=== PATIENT | female | born 1955 | race Caucasian/White ===

== ENCOUNTER 2023-10-06 01:05 | Day surgery (SDC) | payer MEDICARE, SELFPAY ==
[2023-09-21 14:52] VITALS: BMI 25.0
--- NOTE | 2023-09-22 09:44 | SUR.PREOP ---
Patient reported that the bisacodyl laxative tabs cause her abdominal pain, nausea and vomiting. She asked if she could skip or substitute them for another laxative. Per Dr. Duque, patient can take 10oz magnesium citrate in place of laxative tabs.
--- NOTE | 2023-10-04 09:16 | SUR.PREOP ---
Patient called regarding upcoming procedure. Reviewed preop instructions, appointment times, and procedure prep.
--- NOTE | 2023-10-05 18:14 | PM.HPGS ---
History of Present Illness History of Present Illness Consent: Risks, benefits, and alternatives have been discussed and questions answered. Patient agrees to proceed with procedure. Chief complaint: GERD,Dysphagia,Fam hx colon ca Narrative: Neelam Pettit is a 68 year old female With worsening acid reflux will she were regurgitate and have a bitter and sour taste in her mouth and usually worse by the evening time.? She does have nocturnal wakening with this.? She takes for fast acting Tums around 3 times per week that does help.? She describes that anything acidic such as bananas, tomatoes, onions and carbonation give her worsening symptoms.? She does state if she drinks carbonation it burn as it goes down her esophagus.? She does have a history of cervical spine surgery From anterior approach and does report a pressure sensation with swallowing in that same area. she has a family history of colon cancer. Her father had colon cancer. Her last colonoscopy was about 6 years ago. Review of Systems Review of Systems: All systems reviewed & are unremarkable except as noted in HPI and below PMFSH Past Medical History Medical History Constipation Diverticulosis Dysphagia Family hx of colon cancer Gastroesophageal reflux disease History of gastroscopy History of ischemic colitis Hx of colonic polyp Tobacco use Surgical History Surgical History History of partial hysterectomy History of tonsillectomy Hx of cholecystectomy Family History Family History Father Colon cancer Mother Hypertension Heart disease Social History Social History Smoking packs per day: 0.5 Smoking cigarettes per day: 10.0 Years smoked: 30 Smoking pack-years: 15.00 Smoking status: Current every day smoker Tobacco type: cigarettes and e-cigarettes/vaping Alcohol intake: current Substance use: unknown Living arrangements: with family Spiritual care concerns: No Meds Home Medications and Allergies Home Medications Medication Instructions Recorded Confirmed Type acetaminophen 300 mg-codeine 30 12.5 ml PO Q8H 08/17/23 10/06/23 History mg/12.5 mL (12.5 mL) oral solution atorvastatin 20 mg tablet 20 mg PO DAILY 08/17/23 10/06/23 History cyclobenzaprine 10 mg tablet 10 mg PO TID 08/17/23 10/06/23 History dicyclomine 20 mg tablet 20 mg PO TID PRN cramping 08/17/23 10/06/23 History glimepiride 1 mg tablet 1 mg PO QAM 08/17/23 10/06/23 History metformin 500 mg tablet 500 mg PO BID 08/17/23 10/06/23 History omeprazole 40 mg capsule,delayed 40 mg PO DAILY #30 caps 08/17/23 10/06/23 Rx release oxybutynin chloride 5 mg tablet 5 mg PO TID PRN Interstitial 08/17/23 10/06/23 History Cystitis Allergies Allergy/AdvReac Type Severity Reaction Status Date / Time fentanyl Allergy Mild Unknown Verified 10/06/23 08:20 indomethacin Allergy Mild unknown Verified 10/06/23 08:20 meperidine [From Demerol] Allergy Mild Unknown Verified 10/06/23 08:20 tetracycline Allergy Mild Unknown Verified 10/06/23 08:20 tramadol [From Ultram] Allergy Mild Unknown Verified 10/06/23 08:20 hydrocodone AdvReac Mild unknown Verified 10/06/23 08:20 oxycodone [From Percocet] AdvReac Mild Unknown Verified 10/06/23 08:20 floxin Allergy Mild Unknown Uncoded 10/06/23 08:20 neospro Allergy Mild Unknown Uncoded 10/06/23 08:20 Exam Const: General: alert Orientation/consciousness: patient oriented x3 Resp: Auscultation: clear to auscultation bilaterally Cardio: Rhythm: regular rhythm GI: GI Palp: Yes Soft to palpation and No Tenderness to palpation present (GI) Neuro: General: patient oriented x3 Assessment and Plan Assessment and plan (1) Family hx of colon cancer: Code(s): Z80.0 - Family history of malignant neoplasm of digestive organs Status: Acute Assessme
[2023-10-06 08:21] VITALS: BP 118/65; PULSE 95; RESP 18; TEMP 36.1; O2SAT 100; BMI 25.0
[2023-10-06] MEDS: LACTATED RINGERS 1,000 ML 150 ML IV CONT (08:24)
[2023-10-06 08:42] LABS: Glucose Point of Care 144 mg/dl (65-105)
--- NOTE | 2023-10-06 08:47 | WPDANESEPPF ---
Anes - Initial Pre Proc Eval Procedure: Operation Date: 10/06/23 09:00 Proposed Procedures p Esophagogastroduodenoscopy & Colonoscopy - Boaz Duque MD Date/Time: 10/06/23 08:47 Surgeon: Boaz Duque MD Pre Op Diagnosis: GERD,Dysphagia,Fam hx colon ca Patient Data Age: 68 Gender: F Height: 1.55 m Weight: 60.2 kg Last Vital Signs Temp 96.9 F L 10/06/23 08:21 Pulse 95 10/06/23 08:21 Resp 18 10/06/23 08:21 BP 118/65 10/06/23 08:21 Pulse Ox 100 10/06/23 08:21 O2 Del Method Room Air 10/06/23 08:21 Allergies Allergy/AdvReac Type Severity Reaction Status Date / Time fentanyl Allergy Mild Unknown Verified 10/06/23 08:20 indomethacin Allergy Mild unknown Verified 10/06/23 08:20 meperidine [From Demerol] Allergy Mild Unknown Verified 10/06/23 08:20 tetracycline Allergy Mild Unknown Verified 10/06/23 08:20 tramadol [From Ultram] Allergy Mild Unknown Verified 10/06/23 08:20 hydrocodone AdvReac Mild unknown Verified 10/06/23 08:20 oxycodone [From Percocet] AdvReac Mild Unknown Verified 10/06/23 08:20 floxin Allergy Mild Unknown Uncoded 10/06/23 08:20 neospro Allergy Mild Unknown Uncoded 10/06/23 08:20 Home Medications Medication Instructions Recorded Confirmed Type acetaminophen 300 mg-codeine 30 12.5 ml PO Q8H 08/17/23 10/06/23 History mg/12.5 mL (12.5 mL) oral solution atorvastatin 20 mg tablet 20 mg PO DAILY 08/17/23 10/06/23 History cyclobenzaprine 10 mg tablet 10 mg PO TID 08/17/23 10/06/23 History dicyclomine 20 mg tablet 20 mg PO TID PRN cramping 08/17/23 10/06/23 History glimepiride 1 mg tablet 1 mg PO QAM 08/17/23 10/06/23 History metformin 500 mg tablet 500 mg PO BID 08/17/23 10/06/23 History omeprazole 40 mg capsule,delayed 40 mg PO DAILY #30 caps 08/17/23 10/06/23 Rx release oxybutynin chloride 5 mg tablet 5 mg PO TID PRN Interstitial 08/17/23 10/06/23 History Cystitis Laboratory Tests 10/06/23 08:38 POC Capillary Glucose 144 H mg/dl (65-105) Patient hx anesthesia problems: none Family hx anesthesia problems: none Results Review: All pre-operative results and documents have been reviewed as part of the pre-operative evaluation. PMF Past Medical History Medical History Constipation Diverticulosis Dysphagia Family hx of colon cancer Gastroesophageal reflux disease History of gastroscopy History of ischemic colitis Hx of colonic polyp Tobacco use Surgical History Surgical History (Updated 08/17/23 @ 11:48 by Jesusita Nunez MA) History of partial hysterectomy History of tonsillectomy Hx of cholecystectomy Family History Family History (Updated 08/17/23 @ 08:23 by Jesusita Nunez MA) Father Colon cancer Mother Hypertension Heart disease Social History Social History (Updated 08/17/23 @ 11:49 by Jesusita Nunez MA) Smoking packs per day: 0.5 Smoking cigarettes per day: 10.0 Years smoked: 30 Smoking pack-years: 15.00 Smoking status: Current every day smoker Tobacco type: cigarettes and e-cigarettes/vaping Alcohol intake: current Substance use: unknown Living arrangements: with family Spiritual care concerns: No Anes - Eval Final PreProcedure Day of Procedure 10/06/23 08:47 Patient weight: normal Heart: regular rate and rhythm Lungs: clear to auscultation Airway: Mallampati scale class II Neurological: alert and oriented Last oral intake: >/= 8 hours ASA classification: III Emergent: no Anesthetic plan: proceed Anesthesia type and monitoring: general GIVS and standard monitoring Results Review: All pre-operative results and documents have been reviewed as part of the pre-operative evaluation. Informed Consent: The patient's anesthetic plan and its attendant risks and benefits were discussed with the patient/family/POA. Questions were solicited and answers provided to the satisfaction of the patient/family/POA.
[2023-10-06 09:32] VITALS: BP 91/44; PULSE 77; RESP 23; O2SAT 100
[2023-10-06 09:42] VITALS: BP 98/51; PULSE 79; RESP 25; O2SAT 100
[2023-10-06 09:52] VITALS: BP 99/54; PULSE 78; RESP 19; O2SAT 100
== END 2023-10-06 10:03 | disposition home or self-care (01) ==
PROVIDERS: PCP Internal Medicine; Visit Provider Internal Medicine Gastroenterology
PROC: 0DJ08ZZ Inspection of Upper Intestinal Tract, Via Natural or Artificial Opening Endoscopic (ICD-10-PCS; CPT 43235; principal; 2023-10-06 09:00)
DX: Z12.11 Encounter for screening for malignant neoplasm of colon (principal); D12.0 Benign neoplasm of cecum; K62.1 Rectal polyp; K63.5 Polyp of colon; K57.30 Diverticulosis of large intestine without perforation or abscess without bleeding; Z80.0 Family history of malignant neoplasm of digestive organs; K21.00 Gastro-esophageal reflux disease with esophagitis, without bleeding; K29.80 Duodenitis without bleeding; Z79.84 Long term (current) use of oral hypoglycemic drugs; F17.210 Nicotine dependence, cigarettes, uncomplicated; F17.290 Nicotine dependence, other tobacco product, uncomplicated
CPT/HCPCS: 45385; 45380; 43239; 43450; 82948; 88305; J2371; J2704; J7120

== ENCOUNTER 2024-03-28 09:18 | Outpatient (CLI) | payer MEDICARE, SELFPAY ==
--- NOTE | ~2024-03-28 | CT_ITS ---
Non-contrast CT scan of the Abdomen and Pelvis Clinical indication: Hydronephrosis Technique: 2.5 mm axial scans were obtained through the abdomen and pelvis without intravenous or or al contrast. Dose reduction technique was used on this scan by utilizing automated exposure control a nd iterative reconstruction technique. The dose-length product (DLP) was 394.39 mGy-cm. Findings: Images through the lung bases reveal no abnormalities. There is no evidence of renal or ureteral calculi. The kidneys and the ureters are nondilated. The liver, spleen, pancreas, and adrenals appear normal. Cholecystectomy clips are present. Common bi le duct is probably related to prior cholecystectomy. There are atherosclerotic calcifications of the aorta. . There is no evidence of bowel obstruction. Images through the pelvis were performed. There is no evidence of ascites or lymphadenopathy. Urinary bladder unremarkable. No adnexal mass seen. No ascites. Impression: No significant abnormality seen. No hydronephrosis. The common bile duct is probably related to prior cholecystectomy. Reviewed, dictated and finalized at [facility]. Impression: No significant abnormality seen. No hydronephrosis. The common bile duct is probably related to prior cholecystectomy.
== END 2024-03-28 09:19 | disposition home or self-care (01) ==
PROVIDERS: PCP Internal Medicine; Visit Provider Urology
DX: N13.30 Unspecified hydronephrosis (principal)
CPT/HCPCS: 74176

== ENCOUNTER 2025-05-22 07:05 | Outpatient (CLI) | payer MEDICARE, SELFPAY ==
--- NOTE | ~2025-05-22 | MM_ITS ---
EXAMINATION: MM screening [facility] BI w briseyda HISTORY: Screening TECHNIQUE: Craniocaudal and mediolateral oblique 3-D tomosynthesis images were obtained and synthetic 2-D images were generated. CAD analysis was submitted and interpreted. COMPARISON: Comparison to multiple prior studies sequentially, with oldest reviewed study dated 10/01. BREAST PARENCHYMAL COMPOSITION: The breasts are almost entirely fatty. FINDINGS: There is no evidence of suspicious mass, calcification, or architectural distortion to sug gest malignancy in either breast. Scattered benign-appearing calcifications are present. IMPRESSION: 1. No mammographic evidence of malignancy. 2. Recommend routine screening mammography in one year. BI-RADS Category 2: Benign finding(s). Reviewed, dictated and finalized at location B.
--- OUTSIDE RECORDS SUMMARY | 2025-05-22 07:09 | XMS_ITS | Clinical Summary ---
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 Role Phone Unavailable Primary Care Provider Unavailabl e Social History Tobacco Use Types Packs/Day Years Used Date Smoking Tobacco: Never Assessed Comments Unknown Sex and Gender Information Value Date Recorded Sex Assigned at Not on file Legal Sex Female 6:42 PM CDT Gender Identity Not on file Sexual Orientation Not on file Plan of Treatment Health Maintenance Due Date Last Done Comments Colorectal Cancer Screening Colonoscopy (10 Years) 1954 Hepatitis C 1972 DTaP, Tdap and Td Vaccines ( 1 - Tdap) 1973 Mammogram Screening 1994 Pneumococcal Vaccine: 50+ Ye ars (1 of 1 - PCV) 2004 Zoster Vaccines (1 of 2) 2004 Dexa Scan (General) 2019 COVID-19 Vaccine ( - 2023-2 5 season) 2024 RSV Immunization or 60+ Years (1 - 1-dose 75+ series) 2029 Meningococcal B Vaccine Aged Out No l onger eligible based on patient's age to complete this topic Meningococcal Vaccine Aged Out No kory kailey eligible based on patient's age to complete this topic RSV Immunizations Under 20 Months Aged Out No longer eligible based on patient's age to complete this topic
--- OUTSIDE RECORDS SUMMARY | 2025-05-22 07:09 | XMS_ITS | Data Portability ---
Author Organization [facility] Ferdinand Andrade Address [address] [place] [address] Care Team Providers Care Changer Fixer Name Role Phone NATASHA HUTCHINS Primary Care Provider [phone] [facility] Pododermatologist Assessment Encounter Date Assessment Date Assessment LastModified by Organization Details LastModified Time 02/16/2024 02/16/2024 Hypertension actually she has done very well controlling this conservatively. Dyslipidemia atorvastatin diabetes we will continue with the metformin and the glimepiride we will check A1c GERD omeprazole she recently had upper endoscopy in the past 6 months she did have some reflux esophagitis also had a colonoscopy I believe in October 2023 we will get those results. Low vitamin D level supplementation [id number] chronic back pain she uses Tylenol with codeine and cyclobenzaprine that she gets from pain management. Smoking she has had mole conversations about smoking cessation is not interested at this time she understands the risks we will obtain her old records see me back in 4 months CBC CMP lipid A1c Not available 02/16/2024 11:09:33 06/16/2024 06/16/2024 Tighten up on di et tighten up on walking she is going to be caring for here in the next week or so as he is going to have an a joint replacement. For her A1c glimepiride 2 mg 1/2 tablet daily for 1-2 weeks if her sugars are not less than 140 in the morning she will go to a 2 mg tablet she will let me know in a couple weeks how she is doing. She still has occasional heartburn omeprazole in the morning Pepcid at night [email or web address] Not available 06/17/2024 12:31:33 10/17/2024 10/17/2024 obtain blood wor k get her set up with a diabetic foot exam a mammogram obtain her diabetic eye exam report. Medications discussed that are in the assessment and plan still continues to see pain management. She will follow up with me in 4 months continue current therapy flu shot today see only immunizations she says she is going to take today [email or web address] Not available 10/17/2024 13:41:05 02/20/2025 02/20/2025 We will continue current therapy goals for blood pressure A1c and LDL discussed we will follow up with me in 4 months' time continue current therapy [email or web address] Not available 02/25/2025 16:34:27 Plan of Treatment Reminders Order Date Submit Date Provider Last Modified By Organization Details Last Modified Time Details Appointments ANY 15 2024 11:00A M Natasha Hutchins MD Not available Not available Not available Lab HbA1c (hemoglob in A1c), blood 2024 025 [facility], [address], [place], [address], 02/21/2025 09:04:56 lipid panel, serum 2024 025 [facility], [address], [place], [address], 02/21/2025 09:04:53 CMP, serum or plasma 2024 025 [facility], [address], [place], [address], 02/21/2025 09:04:54 CBC w/ auto diff 2024 025 [facility], [address], [place], [address], 02/21/2025 09:04:57 HbA1c (hemoglob in A1c), blood 2023 024 [facility], [address], [place], [address], 11/30/2024 13:12:19 microalbu min/creat inine, mass ratio, urine 2023 024 [facility], [address], [place], [address], 11/30/2024 13:12:15 lipid panel, serum 2023 024 [facility], [address], [place], [address], 11/30/2024 13:12:16 CMP, serum or plasma 2023 024 [facility], [address], [place], [address], 11/30/2024 13:12:17 CBC w/ auto diff 2023 024 [facility], [address], [place], [address], 11/30/2024 13:12:21 vitamin D, 25-hydrox y, total, serum 2023 024 [facility], [address], [place], [address], 11/30/2024 13:12:22 HbA1c (hemoglob in A1c), blood 2023 024 [email or web address] In-Office Order, Internal Use Only DO Not Attach Compendium DO Not Attach Compendium, Do Not Delete/[place], [id number] 06/16/2024 12:31:56 HbA1c (hemoglob in A1c), blood 2023 024 [facility], [address], [place], [address], 02/19/2024 11:14:23 CBC w/ auto diff 2023 024 [facility], [address], [place], [address], 02/19/2024 11:14:24 CMP, serum or plasma 2023 024 [facility], [address], [place], [address], 02/19/2024 11:14:23 lipid panel, serum 2023 024 [facility], [address], [place], [address], 02/19/2024 11:14:22 vitamin D, 25-hydrox y, total, serum 2023 024 [facility], [address], [place], [address], 02/19/2024 11:14:24 Referral None recorded. Procedures None recorded. Surgeries None recorded. Imaging MAMMO, screening , digital, bilateral 2023 024 [facility] (Imaging), [address], [place], [address], 05/01/2025 15:29:33 Medication Orders glimepiri de 2 mg tablet [address] #[id number], [address], [place], [address], 06/16/2024 12:31:56 Pepcid 20 mg tablet 2023 024 [email or web address] [id number] [id number], [address], [place], [address], 06/16/2024 12:31:56 omeprazol e 20 mg capsule,d elayed release [address]/[facility]acy #[id number], [address], [place], [address], 06/16/2024 12:31:56 Patient TargetsNo targets recorded. Patient Instructions Encounter Date Encounter Id Patient Instructions Last Modified By Organization Details Last Modified Time 06/16/2024 [id number] A healthy lifestyle: care instructions [email or web address] Not available 06/17/2024 12:32:05 Quitting Tobacco : Care Instructions Not available 06/17/2024 12:32:05 02/20/2025 [id number] A healthy lifestyle: care instructions [email or web address] Not available 02/20/2025 12:58:28 Reason for Referral None Reported. Results Created Date Observation Date Name Description Value Unit Range Abnormal Flag Note LastModifiedBy Organization Detail LastModifiedTime 02/18/20 24 02/19/2024 LIPID PANEL cholesterol, total 124 mg/dL 100-19 9 Not Available [facility] ([facility]) [address] [place], [address], 02/19/2024 11:14:22 02/18/20 24 02/19/2024 LIPID PANEL triglyceride s 150 mg/dL 0-149 above high normal Not Available [facility] ([facility]) [address] [place], [address], 02/19/2024 11:14:22 02/18/20 24 02/19/2024 LIPID PANEL HDL cholesterol 36 mg/dL >39 below low normal Not Available [facility] ([facility]) [address] [place], [address], 02/19/2024 11:14:22 02/18/20 24 02/19/2024 LIPID PANEL VLDL cholesterol franck 26 mg/dL 5-40 Not Available [facility] ([facility]) [address] [place], [address], 02/19/2024 11:14:22 02/18/20 24 02/19/2024 LIPID PANEL LDL chol calc ([facility]) 62 mg/dL 0-99 Not Available [facility]) [address] [place], [address], 02/19/2024 11:14:22 02/18/20 24 02/19/2024 COMP. METAB OLIC PANEL (14) glucose 200 mg/dL 70-99 above high normal Not Available [facility] ([facility]) [address] [place], [address], 02/19/2024 11:14:23 02/18/20 24 02/19/2024 COMP. METAB OLIC PANEL (14) BUN 19 mg/dL 8-27 Not Available [facility] ([facility]) [address] [place], [address], 02/19/2024 11:14:23 02/18/20 24 02/19/2024 COMP. METAB OLIC PANEL (14) creatinine 1.43 mg/dL 0.57-1 .00 above high normal Not Available [facility] ([facility]) [address] [place], [address], 02/19/2024 11:14:23 02/18/20 24 02/19/2024 COMP. METAB OLIC PANEL (14) eGFR 40 mL/mi n/1.7 3 >59 below low normal Not Available [facility] ([facility]) [address] [place], [address], 02/19/2024 11:14:23 02/18/20 24 02/19/2024 COMP. METAB OLIC PANEL (14) BUN/creatini ne ratio 13 12-28 Not Available [facility] ([facility]) [address] [place], [address], 02/19/2024 11:14:23 02/18/20 24 02/19/2024 COMP. METAB OLIC PANEL (14) sodium 141 mmol/ L 134-14 4 Not Available [facility] ([facility]) [address] [place], [address], 02/19/2024 11:14:23 02/18/20 24 02/19/2024 COMP. METAB OLIC PANEL (14) potassium 4.5 mmol/ L 3.5-5. 2 Not Available [facility] ([facility]) [address] [place], [address], 02/19/2024 11:14:23 02/18/20 24 02/19/2024 COMP. METAB OLIC PANEL (14) chloride 104 mmol/ L 96-106 Not Available [facility] ([facility]) [address] [place], [address], 02/19/2024 11:14:23 02/18/20 24 02/19/2024 COMP. METAB OLIC PANEL (14) carbon dioxide, total 23 mmol/ L 20-29 Not Available [facility] ([facility]) [address] [place], [address], 02/19/2024 11:14:23 02/18/20 24 02/19/2024 COMP. METAB OLIC PANEL (14) calcium 9.7 mg/dL 8.7-10 .3 Not Available [facility] ([facility]) [address] [place], [address], 02/19/2024 11:14:23 02/18/20 24 02/19/2024 COMP. METAB OLIC PANEL (14) protein, total 7.4 g/dL 6.0-8. 5 Not Available [facility] ([facility]) [address] [facility] [place], [address], 02/19/2024 11:14:23 02/18/20 24 02/19/2024 COMP. METAB OLIC PANEL (14) albumin 4.3 g/dL 3.9-4. 9 Not Available [facility] ([facility]) [address] [facility] [place], [address], 02/19/2024 11:14:23 02/18/20 24 02/19/2024 COMP. METAB OLIC PANEL (14) globulin, total 3.1 g/dL 1.5-4. 5 Not Available [facility] ([facility]) [address] [facility] [place], [place], [address], 02/19/2024 11:14:23 02/18/20 24 02/19/2024 COMP. METAB OLIC PANEL (14) A/G ratio 1.4 1.2-2. 2 Not Available [facility] ([facility]) [address] [facility] [place], [place], [address], 02/19/2024 11:14:23 02/18/20 24 02/19/2024 COMP. METAB OLIC PANEL (14) bilirubin, total <0.2 mg/dL 0.0-1. 2 Not Available [facility] ([facility]) [address] [facility] [place], [place], [address], 02/19/2024 11:14:23 02/18/20 24 02/19/2024 COMP. METAB OLIC PANEL (14) alkaline phosphatase 121 IU/L 44-121 Not Available [facility]) [address] [facility] [place], [place], [address], 02/19/2024 11:14:23 02/18/20 24 02/19/2024 COMP. METAB OLIC PANEL (14) AST (SGOT) 27 IU/L 0-40 Not Available [facility] ([facility]) [address] [facility] [place], [place], [address], 02/19/2024 11:14:23 02/18/20 24 02/19/2024 COMP. METAB OLIC PANEL (14) ALT (SGPT) 34 IU/L 0-32 above high normal Not Available [facility] ([facility]) [address] [place], [address], 02/19/2024 11:14:23 02/18/20 24 02/19/2024 HEMOG LOBIN A1C hemoglobin A1C 8.2 % 4.8-5. 6 above high normal Predi abete s: 5.7 - 6.4 Diabe ana cristina: >6.4 Glyce kian contr ol for adult s with diabe ana cristina: <7.0 Not Available [facility] ([facility]) [address] [place], [address], 02/19/2024 11:14:23 02/18/20 24 02/19/2024 CBC WITH DIFFE RENTI AL/PL ATELE T WBC 9.4 x10e3 /uL 3.4-10 .8 Not Available [facility] ([facility]) [address] [place], [address], 02/19/2024 11:14:24 02/18/20 24 02/19/2024 CBC WITH DIFFE RENTI AL/PL ATELE T RBC 3.98 x10e6 /uL 3.77-5 .28 Not Available [facility] ([facility]) [address] [facility] [place], [place], [address], 02/19/2024 11:14:24 02/18/20 24 02/19/2024 CBC WITH DIFFE RENTI AL/PL ATELE T hemoglobin 11.9 g/dL 11.1-1 5.9 Not Available [facility] ([facility]) [address] [place], [address], 02/19/2024 11:14:24 02/18/20 24 02/19/2024 CBC WITH DIFFE RENTI AL/PL ATELE T hematocrit 36.5 % 34.0-4 6.6 Not Available [facility] ([facility]) [address] [place], [address], 02/19/2024 11:14:24 02/18/20 24 02/19/2024 CBC WITH DIFFE RENTI AL/PL ATELE T MCV 92 fL 79-97 Not Available [facility] ([facility]) [address] [place], [address], 02/19/2024 11:14:24 02/18/20 24 02/19/2024 CBC WITH DIFFE RENTI AL/PL ATELE T MCH 29.9 pg 26.6-3 3.0 Not Available [facility] ([facility]) [address] [facility], [place], [address], 02/19/2024 11:14:24 02/18/20 24 02/19/2024 CBC WITH DIFFE RENTI AL/PL ATELE T MCHC 32.6 g/dL 31.5-3 5.7 Not Available [facility] ([facility]) [address] [facility] [place], [place], [address], 02/19/2024 11:14:24 02/18/20 24 02/19/2024 CBC WITH DIFFE RENTI AL/PL ATELE T RDW 12.9 % 11.7-1 5.4 Not Available [facility] ([facility]) [address] [facility] [place], [place], [address], 02/19/2024 11:14:24 02/18/20 24 02/19/2024 CBC WITH DIFFE RENTI AL/PL ATELE T platelets 263 x10e3 /uL 150-45 0 Not Available [facility] ([facility]) [address] [facility] [place], [place], [address], 02/19/2024 11:14:24 02/18/20 24 02/19/2024 CBC WITH DIFFE RENTI AL/PL ATELE T neutrophils 53 % notest ab. Not Available [facility] ([facility]) [address] [facility] [place], [place], [address], 02/19/2024 11:14:24 02/18/20 24 02/19/2024 CBC WITH DIFFE RENTI AL/PL ATELE T lymphs 38 % notest ab. Not Available [facility] ([facility]) [address] [facility] [place], [place], [address], 02/19/2024 11:14:24 02/18/20 24 02/19/2024 CBC WITH DIFFE RENTI AL/PL ATELE T monocytes 6 % notest ab. Not Available [facility] ([facility]) [address] [facility] [place], [place], [address], 02/19/2024 11:14:24 02/18/20 24 02/19/2024 CBC WITH DIFFE RENTI AL/PL ATELE T eos 2 % notest ab. Not Available [facility] ([facility]) [address] [facility] [place], [place], [address], 02/19/2024 11:14:24 02/18/20 24 02/19/2024 CBC WITH DIFFE RENTI AL/PL ATELE T basos 1 % notest ab. Not Available [facility] ([facility]) [address] [facility] [place], [place], [address], 02/19/2024 11:14:24 02/18/20 24 02/19/2024 CBC WITH DIFFE RENTI AL/PL ATELE T neutrophils (absolute) 5.0 x10e3 /uL 1.4-7. 0 Not Available [facility] ([facility]) [address] [facility] [place], [place], [address], 02/19/2024 11:14:24 02/18/20 24 02/19/2024 CBC WITH DIFFE RENTI AL/PL ATELE T lymphs (absolute) 3.6 x10e3 /uL 0.7-3. 1 above high normal Not Available [facility] ([facility]) [address] [facility] [place], [place], [address], 02/19/2024 11:14:24 02/18/20 24 02/19/2024 CBC WITH DIFFE RENTI AL/PL ATELE T monocytes(ab solute) 0.6 x10e3 /uL 0.1-0. 9 Not Available [facility] ([facility]) [address] [place], [address], 02/19/2024 11:14:24 02/18/20 24 02/19/2024 CBC WITH DIFFE RENTI AL/PL ATELE T eos (absolute) 0.1 x10e3 /uL 0.0-0. 4 Not Available [facility] ([facility]) [address] [facility] [place], [place], [address], 02/19/2024 11:14:24 02/18/20 24 02/19/2024 CBC WITH DIFFE RENTI AL/PL ATELE T baso (absolute) 0.1 x10e3 /uL 0.0-0. 2 Not Available [facility] ([facility]) [address] [facility] [place], [place], [address], 02/19/2024 11:14:24 02/18/20 24 02/19/2024 CBC WITH DIFFE RENTI AL/PL ATELE T immature granulocytes 0 % notest ab. Not Available [facility] ([facility]) [address] [facility] [place], [place], [address], 02/19/2024 11:14:24 02/18/20 24 02/19/2024 CBC WITH DIFFE RENTI AL/PL ATELE T immature grans (abs) 0.0 x10e3 /uL 0.0-0. 1 Not Available [facility] ([facility]) [address] [facility], [place], [address], 02/19/2024 11:14:24 02/18/20 24 02/19/2024 VITAM IN D, 25-HY DROXY vitamin D, 25-hydroxy 10.5 NG/mL 30.0-1 00.0 below low normal Vitam in D defic iency has been defin ed by the Insti tute of Medic ine and an Endoc rine Socie ty pract ice guide line as a level of serum 25-OH vitam in D less than 20 ng/mL (1,2) . The Endoc rine Socie ty went on to furth er defin e vitam in D insuf ficie ncy as a level betwe en 21 and 29 ng/mL (2). 1. IOM (Inst itute of Medic ine). 2010. Juliaa ry refer ence freddy es for calci um and D. Gracia giron [place]: The [facility] Press . 2. Eddy trinidad MF, Dariusz martinez [place], Dnoald off-F errar i TRAORE, et al. Evalu ation , treat ment, and preve ntion of vitam in D defic iency : an Endoc rine Socie ty clini franck pract ice guide line. JCEM. 2010; 96(7) :1911 -30. Not Available [facility] ([facility]) [address] [place], [address], 02/19/2024 11:14:24 06/16/20 24 06/16/2024 HbA1c (hemo globi n A1c), blood HbA1c 9.8 Not Available In-Office Order Internal Use Only DO Not Attach Compendium DO Not Attach Compendium, Do Not Delete/merge, [id number] 06/16/2024 10:34:28 11/29/19 25 11/30/2024 SPECI MEN STATU S REPOR T specimen status report TNP Test not perfo rmed. Patie nt was unabl e to provi de a self- colle cted speci men for the reque sted testi ng. The follo wing test( s) were not perfo rmed: TEST: [id number] Album in/Cr eat Ratio , Rando m Ur Not Available [facility] ([facility]) [address] [place], [address], 11/30/2024 13:12:14 11/29/19 25 11/30/2024 ALBUM IN/CR EAT RATIO , RANDO M UR creatinine, urine - mg/dL Test not perfo rmed. Patie nt was unabl e to provi de a self- colle cted speci men for the reque sted testi ng. The follo wing test( s) were not perfo rmed: Not Available [facility] ([facility]) [address] [place], [address], 11/30/2024 13:12:15 11/29/19 25 11/30/2024 ALBUM IN/CR EAT RATIO , RANDO M UR albumin, urine - Test not perfo rmed Not Available [facility] ([facility]) [address] [place], [address], 11/30/2024 13:12:15 11/29/19 25 11/30/2024 LIPID PANEL cholesterol, total 126 mg/dL 100-19 9 Not Available [facility] ([facility]) [address] [place], [address], 11/30/2024 13:12:16 11/29/19 25 11/30/2024 LIPID PANEL triglyceride s 143 mg/dL 0-149 Not Available [facility] ([facility]) [address] [place], [address], 11/30/2024 13:12:16 11/29/19 25 11/30/2024 LIPID PANEL HDL cholesterol 35 mg/dL >39 below low normal Not Available [facility] ([facility]) [address] [place], [address], 11/30/2024 13:12:16 11/29/19 25 11/30/2024 LIPID PANEL VLDL cholesterol franck 25 mg/dL 5-40 Not Available [facility] ([facility]) [address] [place], [address], 11/30/2024 13:12:16 11/29/19 25 11/30/2024 LIPID PANEL LDL chol calc ([facility]) 66 mg/dL 0-99 Not Available [facility]) [address] [place], [address], 11/30/2024 13:12:16 11/29/19 25 11/30/2024 COMP. METAB OLIC PANEL (14) glucose 206 mg/dL 70-99 above high normal Not Available [facility] ([facility]) [address] [place], [address], 11/30/2024 13:12:17 11/29/19 25 11/30/2024 COMP. METAB OLIC PANEL (14) BUN 23 mg/dL 8-27 Not Available [facility] ([facility]) [address] [facility] [place], [address], 11/30/2024 13:12:17 11/29/19 25 11/30/2024 COMP. METAB OLIC PANEL (14) creatinine 1.22 mg/dL 0.57-1 .00 above high normal Not Available [facility] ([facility]) [address] [facility] [place], [address], 11/30/2024 13:12:17 11/29/19 25 11/30/2024 COMP. METAB OLIC PANEL (14) eGFR 48 mL/mi n/1.7 3 >59 below low normal Not Available [facility] ([facility]) [address], [place], [address], 11/30/2024 13:12:17 11/29/19 25 11/30/2024 COMP. METAB OLIC PANEL (14) BUN/creatini ne ratio 19 12-28 Not Available [facility] ([facility]) [address] [facility] [place], [address], 11/30/2024 13:12:17 11/29/19 25 11/30/2024 COMP. METAB OLIC PANEL (14) sodium 141 mmol/ L 134-14 4 Not Available [facility] ([facility]) [address] [facility] [place], [address], 11/30/2024 13:12:17 11/29/19 25 11/30/2024 COMP. METAB OLIC PANEL (14) potassium 5.1 mmol/ L 3.5-5. 2 Not Available [facility] ([facility]) [address] [facility] [place], [address], 11/30/2024 13:12:17 11/29/19 25 11/30/2024 COMP. METAB OLIC PANEL (14) chloride 104 mmol/ L 96-106 Not Available [facility] ([facility]) [address], [place], [address], 11/30/2024 13:12:17 11/29/19 25 11/30/2024 COMP. METAB OLIC PANEL (14) carbon dioxide, total 22 mmol/ L Not Available [facility] ([facility]) [address], [place], [address], 11/30/2024 13:12:17 11/29/19 25 11/30/2024 COMP. METAB OLIC PANEL (14) calcium 9.8 mg/dL 8.7-10 .3 Not Available [facility] ([facility]) [address], [place], [address], 11/30/2024 13:12:17 11/29/19 25 11/30/2024 COMP. METAB OLIC PANEL (14) protein, total 8.0 g/dL 6.0-8. 5 Not Available [facility] ([facility]) [address], [place], [address], 11/30/2024 13:12:17 11/29/19 25 11/30/2024 COMP. METAB OLIC PANEL (14) albumin 4.5 g/dL 3.9-4. 9 Not Available [facility] ([facility]) [address] [facility] [place], [place], [address], 11/30/2024 13:12:17 11/29/19 25 11/30/2024 COMP. METAB OLIC PANEL (14) globulin, total 3.5 g/dL 1.5-4. 5 Not Available [facility] ([facility]) [address] [place], [address], 11/30/2024 13:12:17 11/29/19 25 11/30/2024 COMP. METAB OLIC PANEL (14) bilirubin, total 0.2 mg/dL 0.0-1. 2 Not Available [facility] ([facility]) [address] [facility] [place], [place], [address], 11/30/2024 13:12:17 11/29/19 25 11/30/2024 COMP. METAB OLIC PANEL (14) alkaline phosphatase 131 IU/L 44-121 above high normal Not Available [facility] ([facility]) [address] [facility] [place], [address], 11/30/2024 13:12:17 11/29/19 25 11/30/2024 COMP. METAB OLIC PANEL (14) AST (SGOT) 39 IU/L 0-40 Not Available [facility] ([facility]) [address] [facility] [place], [address], 11/30/2024 13:12:17 11/29/19 25 11/30/2024 COMP. METAB OLIC PANEL (14) ALT (SGPT) 43 IU/L 0-32 above high normal Not Available [facility] ([facility]) [address] [facility] [place], [place], [address], 11/30/2024 13:12:17 11/29/19 25 11/29/2024 UNABL E TO VOID unable to void Commen t Patie nt unabl e to void. Urine to be colle cted at a later date. Not Available [facility] ([facility]) [address] [facility] [place], [place], [address], 11/30/2024 13:12:19 11/29/19 25 11/30/2024 HEMOG LOBIN A1C hemoglobin A1C 9.2 % 4.8-5. 6 above high normal Predi abete s: 5.7 - 6.4 Diabe ana cristina: >6.4 Glyce kian contr ol for adult s with diabe ana cristina: <7.0 Not Available [facility] ([facility]) [address] [facility] [place], [place], [address], 11/30/2024 13:12:19 11/29/19 25 11/30/2024 CBC WITH DIFFE RENTI AL/PL ATELE T WBC 10.6 x10e3 /uL 3.4-10 .8 Not Available [facility] ([facility]) [address] [facility] [place] [facility], [place], [address], 11/30/2024 13:12:20 11/29/19 25 11/30/2024 CBC WITH DIFFE RENTI AL/PL ATELE T RBC 4.03 x10e6 /uL 3.77-5 .28 Not Available [facility] ([facility]) [address] [facility], [place], [address], 11/30/2024 13:12:20 11/29/19 25 11/30/2024 CBC WITH DIFFE RENTI AL/PL ATELE T hemoglobin 11.5 g/dL 11.1-1 5.9 Not Available [facility] ([facility]) [address] [facility], [place], [address], 11/30/2024 13:12:20 11/29/19 25 11/30/2024 CBC WITH DIFFE RENTI AL/PL ATELE T hematocrit 36.5 % 34.0-4 6.6 Not Available [facility] ([facility]) [address] [place], [address], 11/30/2024 13:12:20 11/29/19 25 11/30/2024 CBC WITH DIFFE RENTI AL/PL ATELE T MCV 91 fL 79-97 Not Available [facility] ([facility]) [address] [place], [address], 11/30/2024 13:12:20 11/29/19 25 11/30/2024 CBC WITH DIFFE RENTI AL/PL ATELE T MCH 28.5 pg 26.6-3 3.0 Not Available [facility] ([facility]) [address] [facility] [place], [place], [address], 11/30/2024 13:12:20 11/29/19 25 11/30/2024 CBC WITH DIFFE RENTI AL/PL ATELE T MCHC 31.5 g/dL 31.5-3 5.7 Not Available [facility] ([facility]) [address] [facility] [place], [place], [address], 11/30/2024 13:12:20 11/29/19 25 11/30/2024 CBC WITH DIFFE RENTI AL/PL ATELE T RDW 12.4 % 11.7-1 5.4 Not Available [facility] ([facility]) [address] [facility] [address], [place], [address], 11/30/2024 13:12:20 11/29/19 25 11/30/2024 CBC WITH DIFFE RENTI AL/PL ATELE T platelets 309 x10e3 /uL 150-45 0 Not Available [facility] ([facility]) [address] [facility] [address], [place], [address], 11/30/2024 13:12:20 11/29/19 25 11/30/2024 CBC WITH DIFFE RENTI AL/PL ATELE T neutrophils 51 % notest ab. Not Available [facility] ([facility]) [address] [facility] [address], [place], [address], 11/30/2024 13:12:20 11/29/19 25 11/30/2024 CBC WITH DIFFE RENTI AL/PL ATELE T lymphs 39 % notest ab. Not Available [facility] ([facility]) [address] [facility] [address], [place], [address], 11/30/2024 13:12:20 11/29/19 25 11/30/2024 CBC WITH DIFFE RENTI AL/PL ATELE T monocytes 7 % notest ab. Not Available [facility] ([facility]) [address] [facility] [address], [place], [address], 11/30/2024 13:12:20 11/29/19 25 11/30/2024 CBC WITH DIFFE RENTI AL/PL ATELE T eos 2 % notest ab. Not Available [facility] ([facility]) [address] [place] [place], [address], 11/30/2024 13:12:20 11/29/19 25 11/30/2024 CBC WITH DIFFE RENTI AL/PL ATELE T basos 1 % notest ab. Not Available [facility] ([facility]) [address] [facility] [address], [place], [address], 11/30/2024 13:12:20 11/29/19 25 11/30/2024 CBC WITH DIFFE RENTI AL/PL ATELE T neutrophils (absolute) 5.5 x10e3 /uL 1.4-7. 0 Not Available [facility] ([facility]) [address] [facility] [address], [place], [address], 11/30/2024 13:12:20 11/29/19 25 11/30/2024 CBC WITH DIFFE RENTI AL/PL ATELE T lymphs (absolute) 4.1 x10e3 /uL 0.7-3. 1 above high normal Not Available [facility] ([facility]) [address] [facility] [address], [place], [address], 11/30/2024 13:12:20 11/29/19 25 11/30/2024 CBC WITH DIFFE RENTI AL/PL ATELE T monocytes(ab solute) 0.7 x10e3 /uL 0.1-0. 9 Not Available [facility] ([facility]) [address] [facility] [address], [place], [address], 11/30/2024 13:12:20 11/29/19 25 11/30/2024 CBC WITH DIFFE RENTI AL/PL ATELE T eos (absolute) 0.2 x10e3 /uL 0.0-0. 4 Not Available [facility] ([facility]) [address] [facility] [address], [place], [address], 11/30/2024 13:12:20 11/29/19 25 11/30/2024 CBC WITH DIFFE RENTI AL/PL ATELE T baso (absolute) 0.1 x10e3 /uL 0.0-0. 2 Not Available [facility] ([facility]) [address] [facility] [address], [place], [address], 11/30/2024 13:12:20 11/29/19 25 11/30/2024 CBC WITH DIFFE RENTI AL/PL ATELE T immature granulocytes 0 % notest ab. Not Available [facility] ([facility]) [address] [facility] [address], [place], [address], 11/30/2024 13:12:20 11/29/19 25 11/30/2024 CBC WITH DIFFE RENTI AL/PL ATELE T immature grans (abs) 0.0 x10e3 /uL 0.0-0. 1 Not Available [facility] ([facility]) [address] [facility] [address], [place], [address], 11/30/2024 13:12:20 11/29/19 25 11/30/2024 VITAM IN D, 25-HY DROXY vitamin D, 25-hydroxy 19.3 NG/mL 30.0-1 00.0 below low normal Vitam in D defic iency has been defin ed by the Insti tute of Medic ine and an [facility]oc [facility] Socie ty pract ice guide line as a level of serum 25-OH vitam in D less than 20 ng/mL (1,2) . The Endoc rine Socie ty went on to furth er defin e vitam in D insuf ficie ncy as a level betwe en 21 and 29 ng/mL (2). 1. IOM (Inst itute of Medic ine). 2010. Dieta ry refer ence intak es for calci um and D. Gracia giron DC: The [facility] Press . 2. Eddy trinidad MF, Dariusz martinez [place], Donald off-F errar i TRAORE, et al. Evalu ation , treat ment, and preve ntion of vitam in D defic iency : an Endoc rine Socie ty clini franck pract ice guide line. JCEM. 2010; 96(7) :1911 -30. Not Available [facility] ([facility]) [address] [place], [address], 11/30/2024 13:12:22 02/21/20 25 02/21/2025 LIPID PANEL cholesterol, total 131 mg/dL 100-19 9 Not Available [facility] ([facility]) [address] [place], [address], 02/21/2025 09:04:53 02/21/20 25 02/21/2025 LIPID PANEL triglyceride s 165 mg/dL 0-149 above high normal Not Available [facility] ([facility]) [address] [place], [address], 02/21/2025 09:04:53 02/21/20 25 02/21/2025 LIPID PANEL HDL cholesterol 36 mg/dL >39 below low normal Not Available [facility] ([facility]) [address] [place], [address], 02/21/2025 09:04:53 02/21/20 25 02/21/2025 LIPID PANEL VLDL cholesterol franck 28 mg/dL 5-40 Not Available [facility] ([facility]) [address] [place], [address], 02/21/2025 09:04:53 02/21/20 25 02/21/2025 LIPID PANEL LDL chol calc ([facility]) 67 mg/dL 0-99 Not Available [facility] ([facility]) [address] [place], [address], 02/21/2025 09:04:53 02/21/20 25 02/21/2025 COMP. METAB OLIC PANEL (14) glucose 167 mg/dL 70-99 above high normal Not Available [facility] ([facility]) [address] [place], [address], 02/21/2025 09:04:54 02/21/20 25 02/21/2025 COMP. METAB OLIC PANEL (14) BUN 17 mg/dL 8-27 Not Available [facility] ([facility]) [address] [facility] [place], [address], 02/21/2025 09:04:54 02/21/20 25 02/21/2025 COMP. METAB OLIC PANEL (14) creatinine 1.07 mg/dL 0.57-1 .00 above high normal Not Available [facility] ([facility]) [address] [facility] [place], [address], 02/21/2025 09:04:54 02/21/20 25 02/21/2025 COMP. METAB OLIC PANEL (14) eGFR 56 mL/mi n/1.7 3 >59 below low normal Not Available [facility] ([facility]) [address] [facility] [place], [address], 02/21/2025 09:04:54 02/21/20 25 02/21/2025 COMP. METAB OLIC PANEL (14) BUN/creatini ne ratio 16 12-28 Not Available [facility] ([facility]) [address] [facility] [place], [address], 02/21/2025 09:04:54 02/21/20 25 02/21/2025 COMP. METAB OLIC PANEL (14) sodium 138 mmol/ L 134-14 4 Not Available [facility] ([facility]) [address] [facility] [place], [address], 02/21/2025 09:04:54 02/21/20 25 02/21/2025 COMP. METAB OLIC PANEL (14) potassium 4.7 mmol/ L 3.5-5. 2 Not Available [facility] ([facility]) [address] [facility] [place], [address], 02/21/2025 09:04:54 02/21/20 25 02/21/2025 COMP. METAB OLIC PANEL (14) chloride 100 mmol/ L 96-106 Not Available [facility] ([facility]) [address] [facility] [place], [address], 02/21/2025 09:04:54 02/21/20 25 02/21/2025 COMP. METAB OLIC PANEL (14) carbon dioxide, total 22 mmol/ L Not Available [facility] ([facility]) [address], [place], [address], 02/21/2025 09:04:54 02/21/20 25 02/21/2025 COMP. METAB OLIC PANEL (14) calcium 9.7 mg/dL 8.7-10 .3 Not Available [facility] ([facility]) [address] [facility] [place], [address], 02/21/2025 09:04:54 02/21/20 25 02/21/2025 COMP. METAB OLIC PANEL (14) protein, total 7.9 g/dL 6.0-8. 5 Not Available [facility] ([facility]) [address] [facility] [place], [address], 02/21/2025 09:04:54 02/21/20 25 02/21/2025 COMP. METAB OLIC PANEL (14) albumin 4.4 g/dL 3.9-4. 9 Not Available [facility] ([facility]) [address] [facility] [place], [address], 02/21/2025 09:04:54 02/21/20 25 02/21/2025 COMP. METAB OLIC PANEL (14) globulin, total 3.5 g/dL 1.5-4. 5 Not Available [facility] ([facility]) [address] [facility] [place], [address], 02/21/2025 09:04:54 02/21/20 25 02/21/2025 COMP. METAB OLIC PANEL (14) bilirubin, total <0.2 mg/dL 0.0-1. 2 Not Available [facility] ([facility]) [address] [facility] [place], [address], 02/21/2025 09:04:54 02/21/20 25 02/21/2025 COMP. METAB OLIC PANEL (14) alkaline phosphatase 108 IU/L 44-121 Not Available [facility] ([facility]) [address] [place], [address], 02/21/2025 09:04:54 02/21/20 25 02/21/2025 COMP. METAB OLIC PANEL (14) AST (SGOT) 52 IU/L 0-40 above high normal Not Available [facility] ([facility]) [address] [place], [address], 02/21/2025 09:04:54 02/21/20 25 02/21/2025 COMP. METAB OLIC PANEL (14) ALT (SGPT) 38 IU/L 0-32 above high normal Not Available [facility] ([facility]) [address] [facility] [address], [place], [address], 02/21/2025 09:04:54 02/21/20 25 02/21/2025 HEMOG LOBIN A1C hemoglobin A1C 10.1 % 4.8-5. 6 above high normal Predi abete s: 5.7 - 6.4 Diabe ana cristina: >6.4 Glyce kian contr ol for adult s with diabe ana cristina: <7.0 Not Available [facility] ([facility]) [address] [facility] [address], [place], [address], 02/21/2025 09:04:56 02/21/20 25 02/21/2025 CBC WITH DIFFE RENTI AL/PL ATELE T WBC 10.1 x10e3 /uL 3.4-10 .8 Not Available [facility] ([facility]) [address] [place], [address], 02/21/2025 09:04:57 02/21/20 25 02/21/2025 CBC WITH DIFFE RENTI AL/PL ATELE T RBC 3.89 x10e6 /uL 3.77-5 .28 Not Available [facility] ([facility]) [address] [facility] [address], [place], [address], 02/21/2025 09:04:57 02/21/20 25 02/21/2025 CBC WITH DIFFE RENTI AL/PL ATELE T hemoglobin 10.4 g/dL 11.1-1 5.9 below low normal Not Available [facility] ([facility]) [address] [place], [address], 02/21/2025 09:04:57 02/21/20 25 02/21/2025 CBC WITH DIFFE RENTI AL/PL ATELE T hematocrit 33.6 % 34.0-4 6.6 below low normal Not Available [facility] ([facility]) [address] [facility] [address], [place], [address], 02/21/2025 09:04:57 02/21/20 25 02/21/2025 CBC WITH DIFFE RENTI AL/PL ATELE T MCV 86 fL 79-97 Not Available [facility] ([facility]) [address] [place], [address], 02/21/2025 09:04:57 02/21/20 25 02/21/2025 CBC WITH DIFFE RENTI AL/PL ATELE T MCH 26.7 pg 26.6-3 3.0 Not Available [facility] ([facility]) [address] [place], [address], 02/21/2025 09:04:57 02/21/20 25 02/21/2025 CBC WITH DIFFE RENTI AL/PL ATELE T MCHC 31.0 g/dL 31.5-3 5.7 below low normal Not Available [facility] ([facility]) [address] [place], [address], 02/21/2025 09:04:57 02/21/20 25 02/21/2025 CBC WITH DIFFE RENTI AL/PL ATELE T RDW 13.8 % 11.7-1 5.4 Not Available [facility] ([facility]) [address] [facility] [address], [place], [address], 02/21/2025 09:04:57 02/21/20 25 02/21/2025 CBC WITH DIFFE RENTI AL/PL ATELE T platelets 312 x10e3 /uL 150-45 0 Not Available [facility] ([facility]) [address] [facility] [address], [place], [address], 02/21/2025 09:04:57 02/21/20 25 02/21/2025 CBC WITH DIFFE RENTI AL/PL ATELE T neutrophils 55 % notest ab. Not Available [facility] ([facility]) [address] [facility] [address], [place], [address], 02/21/2025 09:04:57 02/21/20 25 02/21/2025 CBC WITH DIFFE RENTI AL/PL ATELE T lymphs 35 % notest ab. Not Available [facility] ([facility]) [address] [facility] [address], [place], [address], 02/21/2025 09:04:57 02/21/20 25 02/21/2025 CBC WITH DIFFE RENTI AL/PL ATELE T monocytes 7 % notest ab. Not Available [facility] ([facility]) [address] [facility] [address], [place], [address], 02/21/2025 09:04:57 02/21/20 25 02/21/2025 CBC WITH DIFFE RENTI AL/PL ATELE T eos 2 % notest ab. Not Available [facility] ([facility]) [address] [place], [address], 02/21/2025 09:04:57 02/21/20 25 02/21/2025 CBC WITH DIFFE RENTI AL/PL ATELE T basos 1 % notest ab. Not Available [facility] ([facility]) [address] [place], [address], 02/21/2025 09:04:57 02/21/20 25 02/21/2025 CBC WITH DIFFE RENTI AL/PL ATELE T neutrophils (absolute) 5.6 x10e3 /uL 1.4-7. 0 Not Available [facility] ([facility]) [address] [facility] [address], [place], [address], 02/21/2025 09:04:57 02/21/20 25 02/21/2025 CBC WITH DIFFE RENTI AL/PL ATELE T lymphs (absolute) 3.5 x10e3 /uL 0.7-3. 1 above high normal Not Available [facility] ([facility]) [address] [place], [address], 02/21/2025 09:04:57 02/21/20 25 02/21/2025 CBC WITH DIFFE RENTI AL/PL ATELE T monocytes(ab solute) 0.7 x10e3 /uL 0.1-0. 9 Not Available [facility] ([facility]) [address] [place], [address], 02/21/2025 09:04:57 02/21/20 25 02/21/2025 CBC WITH DIFFE RENTI AL/PL ATELE T eos (absolute) 0.2 x10e3 /uL 0.0-0. 4 Not Available [facility] ([facility]) [address] [place], [address], 02/21/2025 09:04:57 02/21/20 25 02/21/2025 CBC WITH DIFFE RENTI AL/PL ATELE T baso (absolute) 0.1 x10e3 /uL 0.0-0. 2 Not Available [facility] ([facility]) [address] [place], [address], 02/21/2025 09:04:57 02/21/20 25 02/21/2025 CBC WITH DIFFE RENTI AL/PL ATELE T immature granulocytes 0 % notest ab. Not Available [facility] ([facility]) [address] [facility] [address], [place], [address], 02/21/2025 09:04:57 02/21/20 25 02/21/2025 CBC WITH DIFFE RENTI AL/PL ATELE T immature grans (abs) 0.0 x10e3 /uL 0.0-0. 1 Not Available [facility] ([facility]) [address] [facility] [address], [place], [address], 02/21/2025 09:04:57 02/21/20 25 02/21/2025 VITAM IN D, 25-HY DROXY vitamin D, 25-hydroxy 35.5 NG/mL 30.0-1 00.0 Vitam in D defic iency has been defin ed by the Insti tute of Medic ine and an Endoc rine Socie ty pract ice guide line as a level of serum 25-OH vitam in D less than 20 ng/mL (1,2) . The Endoc rine Socie ty went on to furth er defin e vitam in D insuf ficie ncy as a level betwe en 21 and 29 ng/mL (2). 1. IOM (Inst itute of Medic ine). 2009. Dieta ry refer ence intak es for calci um and D. Gracia giron DC: The [facility] Press . 2. Eddy trinidad MF, Dariusz martinez [place], Donald off-F errar i TRAORE, et al. Evalu ation , treat ment, and preve ntion of vitam in D defic iency : an Endoc rine Socie ty clini franck pract ice guide line. JCEM. 2010; 96(7) :1911 -30. Not Available [facility] ([facility]) [address] [facility] [address], [place], [address], 02/21/2025 09:05:02 03/06/20 25 03/07/2025 VITAM IN B12 AND FOLAT E vitamin B12 499 pg/mL 232-12 45 Not Available [facility] ([facility]) [address] [place], [address], 03/07/2025 09:03:57 03/06/20 25 03/07/2025 VITAM IN B12 AND FOLAT E folate (folic acid), serum 19.7 NG/mL >3.0 A serum folat e kay ntrat ion of less than 3.1 ng/mL is consi dered to repre sent clini franck defic iency . Not Available [facility] ([facility]) [address] [place], [address], 03/07/2025 09:03:57 03/06/20 25 03/07/2025 IRON AND TIBC iron bind.cap.(TI BC) 457 ug/dL 250-45 0 above high normal Not Available [facility] ([facility]) [address] [place], [address], 03/07/2025 09:03:59 03/06/20 25 03/07/2025 IRON AND TIBC UIBC 402 ug/dL 118-36 9 above high normal Not Available [facility] ([facility]) [address] [place], [address], 03/07/2025 09:03:59 03/06/20 25 03/07/2025 IRON AND TIBC iron 55 ug/dL 27-139 Not Available [facility] ([facility]) [address] [place], [address], 03/07/2025 09:03:59 03/06/20 25 03/07/2025 IRON AND TIBC iron saturation 12 % 15-55 below low normal Not Available [facility] ([facility]) [address] [place], [address], 03/07/2025 09:03:59 03/06/20 25 03/07/2025 DIONY TIN ferritin 14 NG/mL 15-150 below low normal Not Available [facility] ([facility]) [address] [place], [address], 03/07/2025 09:04:00 03/07/20 25 03/08/2025 COLOF IT,OC CULT BLOOD ,FECA L,IA occult blood, fecal, ia NEGATI VE negati ve Not Available [facility] ([facility]) [address], [place], [address], 03/08/2025 15:23:52 03/06/20 24 03/06/2024 US, kidne y No observ ation record ed. [facility] [address], [place], [address], 03/06/2024 13:59:54 03/07/20 24 10/06/2023 colon oscop y proce dure (PROC ) No observ ation record ed. BARCODE Not Available 2023 12:48:11 03/28/20 24 03/28/2024 CT, abdom en + pelvi s, w/o contr ast No observ ation record ed. [address], [place], [address], 04/04/2024 08:26:47 Result Notes None recorded. Problems Name Problem SNOMED Code Status Onset Date Resolution Date Notes Provider Name and Address Organization Details Recorded Time Essential hypertension 01571085 Active 2023 Natasha Hutchins MD Attn: Briseyda abraham,[address] [facility], [place], [address], [facility] - [facility] 4 10:23:57 Hyperlipidemia 84096142 Active 2023 Natasha Hutchins MD Attn: Briseyda abraham,[address] [facility], [place], [address], [place] - [facility] 4 10:23:59 Type 2 diabetes mellitus without complication 555319013 Active 2023 Natasha Hutchins MD Attn: Briseyda abraham,[address] [facility], [place], [address], [facility] - [facility] 4 10:24:00 Gastroesophage al reflux disease without esophagitis 598365667 Active 2023 Natasha Hutchins MD Attn: Briseyda abraham,[address] [facility], [place], [address], [place] - [facility] 4 10:24:14 Vitamin D below reference range 724321354 Active 2023 MENDOZA Sommers, [place] - [facility] 4 10:37:10 Cervical radiculopathy 70539517 Active 2024 Natasha Hutchins MD Attn: Briseyda abraham,[address] [facility], [place], [address], [place] - [facility] 5 16:34:04 Anemia 718058137 Active 2024 MENDOZA [place], [place] - [facility] 5 14:42:10 Problem Notes None recorded. Procedures Surgical History Date Name Laterality Status Provider Name and Address Organization Details Recorded Time Arthroscopic Surgery completed Lolita Garcia [place] - [facility] 02/16/2024 10:07:51 Eye Surgery completed Lolita Garcia [place] - [facility] 02/16/2024 10:07:57 Knee Surgery completed MENDOZA Martinez - [facility] 02/16/2024 10:08:03 Tonsillectomy completed Lolita Garcia [place] - [facility] 02/16/2024 10:08:10 Breast Surgery completed Lolita Garcia [place] - [facility] 02/16/2024 10:08:18 Imaging Results None recorded. Procedure Notes None recorded. Medical Equipment None Reported. Allergies Allergen ID Allergen Name Allergen Category Reaction Reaction Severity Criticality Documentation Date Start Date Code Code System Note Provider Name and Address Organization Details Recorded Time 323235 Floxin medicatio n Not available Not available Not available 02/16/202442954 8 RxNorm MENDOZA [place], [place] - [facility] 4 09:59:37 465817 hydrocodo ne Not available Not available Not available Not available 02/16/2024 5489 RxNorm [place]END[place]ZA [place], [place] - [facility] 4 09:59:51 960007 indometha ofelia medicatio n Not available Not available Not available 02/16/2024 5781 RxNorm MENDOZA Martinez, [place] - [facility] 4 10:00:01 213578 acetamino phen / oxycodone medicatio n Not available Not available Not available 02/16/2024 82006 3 RxNorm MENDOZA Martinez, [facility] 4 10:00:08 499981 Ultram medicatio n Not available Not available Not available 02/16/2024 12036 6 RxNorm MENDOZA Martinez, [facility] 4 10:00:28 799342 tetracycl ine medicatio n Not available Not available Not available 02/16/2024 97214 RxNorm MENDOZA Martinez, [facility] 4 10:00:40 060560 Demerol medicatio n Not available Not available Not available 02/16/2024 48993 1 RxNorm MENDOZA Martinez, [facility] 4 10:00:49 023754 bacitraci n / neomycin / polymyxin B medicatio n Not available Not available Not available 02/16/2024 63849 9 RxNoMENDOZA Mccann, [facility] 4 10:01:05 267009 fentanyl medicatio n Not available Not available Not available 02/16/2024 4337 RxNoMENDOZA Mccann, [facility] 4 10:01:14 Medications Name Sig Start Date Stop Date Status Note LastModified by Organization Details LastModified Time cyclobenzap rine 10 mg tablet TAKE 1 TABLET BY MOUTH THREE TIMES DAILY NEEDED active Not Available Not Available No t Available metformin 500 mg tablet TAKE 2 TABLETS BY MOUTH TWICE A DAY active Not Available Not Available No t Available atorvastati n 20 mg tablet TAKE 1 TABLET BY MOUTH EVERY DAY active Not Available Not Available No t Available acetaminoph en 300 mg-codeine 30 mg tablet TAKE 1 TABLET BY MOUTH THREE TIMES DAILY NEEDED active Not Available Not Available No t Available sulfamethox azole 800 mg-trimetho prim 160 mg tablet 10/17 completed Not Available Not Available Not Available omeprazole 40 mg capsule,del ayed release TAKE 1 CAPSULE BY MOUTH EVERY DAY 02/21 completed Not Available Not Available Not Available glimepiride 2 mg tablet TAKE 1 TABLET BY MOUTH EVERY DAY active Not Available Not Available No t Available glimepiride 1 mg tablet TAKE 1 TABLET BY MOUTH EVERY DAY 07/05 completed Not Available Not Available Not Available famotidine 20 mg tablet TAKE 1 TABLET BY MOUTH EVERYDAY AT BEDTIME active Not Available Not Available No t Available dicyclomine 20 mg tablet Take 1 tablet by mouth three times daily as needed for bowel spasm 02/20 completed Not Available Not Available Not Available OneTouch Ultra Test strips USE TO TEST ONCE DAILY active Not Available Not Available No t Available omeprazole 20 mg capsule,del ayed release TAKE 1 CAPSULE BY MOUTH EVERY DAY active Not Available Not Available No t Available ergocalcife rol (vitamin D2) 1,250 mcg (50,000 unit) capsule TAKE 1 CAPSULE EVERY WEEK BY ORAL ROUTE. active Not Available Not Available No t Available oxybutynin chloride 5 mg tablet Take 1 tablet 3 times a day by oral route as needed. 02/20 completed Not Available Not Available Not Available BD Ultra-Fine Short Pen Needle 31 gauge x 5/16 USE TO INJECT ONCE DAILY active Not Available Not Available No t Available Basaglar KwikPen U-100 Insulin 100 unit/mL (3 mL) subcutaneou s INJECT 15 UNITS SUBCUTANE OUSLY EVERY DAY active Not Available Not Available No t Available OneTouch Delica Plus Lancet 33 gauge USE TO TEST BLOOD SUGAR ONCE A DAY 02/15 completed Not Available Not Available Not Available OneTouch Delica Plus Lancet 30 gauge USE TO CHECK BLOOD SUGARS DAILY active Not Available Not Available No t Available Vitals Date Recorded Body weight Body mass index (BMI) Body height Oxygen saturation Oxygen saturation in Arterial blood by Pulse oximetry Heart rate Systolic And Diastolic Provider Name and Address Organization Details Last Updated DateTime 4 48514.3 8 g 25.3 kg/m2 154.94 cm 96 % 96 % 107 /min 110/65 mm[Hg] Lolita Garcia [place] - [facility] 4 10:11:06 Date Recorded Body height Body mass index (BMI) Body weight Heart rate Oxygen saturation Oxygen saturation in Arterial blood by Pulse oximetry Systolic And Diastolic Provider Name and Address Organization Details Last Updated DateTime 5 154.94 cm 26.4 kg/m2 86071.1 4 g 103 /min 95 % 95 % 104/60 mm[Hg] Raquel Okeefe MA [facility] 5 11:18:09 Date Recorded Body height Body mass index (BMI) Body weight Heart rate Oxygen saturation Oxygen saturation in Arterial blood by Pulse oximetry Systolic And Diastolic Provider Name and Address Organization Details Last Updated DateTime 4 154.94 cm 25.2 kg/m2 35255.8 6 g 105 /min 98 % 98 % 124/70 mm[Hg] Lesly Us MA [facility] 4 10:00:29 Date Recorded Body height Body mass index (BMI) Body weight Heart rate Oxygen saturation Oxygen saturation in Arterial blood by Pulse oximetry Systolic And Diastolic Provider Name and Address Organization Details Last Updated DateTime 4 154.94 cm 26 kg/m2 12865.0 3 g 92 /min 96 % 96 % 106/62 mm[Hg] Lesly Us MA [facility] 4 10:54:54 Social History Question Answer Notes LastModified by Organizat ion Details LastModified Time Tobacco Smoking Status Current Every Day Smoker Lolita Garcia MA [facility] 02/16/2024 10:06:56 Do You Have An Advance Directive? No Information n ot available 02/16/2024 Are You Blind Or Do You Have Difficulty Seeing? No Information n ot available 02/16/2024 What Is Your Level Of Caffeine Consumption? Moderate Information not available 02/16/2024 In The 14 Days Before Symptom Onset, Have You Had Close Contact With A Laboratory-confirm ed COVID-19 While That Case Was Ill? No Information n ot available 10/17/2024 In The 14 Days Before Symptom Onset, Have You Had Close Contact With A Person Who Is Under Investigation For COVID-19 While That Person Was Ill? No Information not available 10/17/2024 Have You Been To An Area Known To Be High Risk For COVID-19? No Information not available 10/17/2024 Are You Deaf Or Do You Have Serious Difficulty Hearing? No Information not available 02/16/2024 What Type Of Diet Are You Following? REGULAR Information n ot available 02/16/2024 Are There Any Guns Present In Your Home? No Information not available 10/17/2024 What Was The Date Of Your Most Recent Tobacco Screening? 02/20/2025 Information not available 02/20/2025 What Is Your Current Pack Years? 20-29packyear s Information not available 02/16/2024 What Is Your Relationship Status? Information not available 02/16/2024 Do You Use Your Seat Belt Or Car Seat Routinely? Yes Information not available 02/16/2024 Do You Have Smoke And Carbon Monoxide Detectors In Your Home? Yes Information not available 02/16/2024 How Much Tobacco Do You Smoke? 0.5 PPD Information not available 02/16/2024 Do You Use Sunscreen Routinely? No Information not available 02/16/2024 Has Tobacco Cessation Counseling Been Provided? Yes Information not available 02/16/2024 On What Date Was Tobacco Cessation Counseling Provided? 02/20/2025 Information not available 02/20/2025 Sex: Female Functional Status Question Answer Note LastModified by Organizat ion Details LastModified Time Do you use any illicit or recreational drugs? No Information not available 02/16/2024 Do you or have you ever used any other forms of tobacco or nicotine? No Information not available 02/16/2024 What is your level of alcohol consumption? Occasional Information not available 02/16/2024 Are you currently employed? No Information not available 02/16/2024 Are you able to care for yourself? Yes Information n ot available 02/16/2024 What is your exercise level? Moderate Information not available 02/16/2024 Mental Status Question Answer Note LastModified by Organization D etails LastModified Time Do you feel stressed (tense, restless, nervous, or anxious, or unable to sleep at night)? [id number] Information not available 02/16/2024 Family History Relationship Description Onset Age of this Age Resolved Age Notes LastModified by Organization Details LastModified Time Father Malignant tumor of colon bandersonma Not available 01/30 10:05:27 Father Diabetes mellitus bandersonma Not available 01/30 10:05:40 Mother Heart disease bandersonma Not available 01/30 10:05:53 Mother Hypertensive disorder bandersonma Not available 01/30 10:06:10 Sister Osteoporosis bandersonma Not av ailable 02/16/2024 10:06:18 Medical History Condition Response Coronary Artery Disease N Other N Atrial Fibrillation N High Blood Pressure Y Thyroid Problems N Kidney or Bladder Problems N Depression N COPD N Blood Clots N GI Problems N Skin Problems N Anemia N Heart Attack (LA) N Diabetes Y Anxiety Disorder N Muscle, Joint, or Bone Problems Y Seizures/Epilepsy N Acid Reflux (GERD) Y Cancer N Stroke N Allergies Y Asthma N High Cholesterol Y Hepatitis N Liver Disease N Headaches N Osteoporosis N Heart Failure N Gynecological HistoryNo gynecological history recorded. Obstetrics History GPAL:G 0 P 0 0 0 0 Immunizations Vaccine Type Date Status Note Provider Nam e and Address Organization Details Recorded Time Influenza, high-dose, quadrivalent, PF 0 completed MENDOZA [place], [place] - [facility] 10/17/2024 09:59:55 Influenza, high-dose, quadrivalent, PF 1 completed Reginaldo Majano [place], [place] [facility] 10/17/2024 09:59:55 Influenza, high-dose, quadrivalent, PF 3 [place] MEND[place] [facility] 10/17/2024 09:59:55 Influenza, high-dose, quadrivalent, PF 2 [place] MENDO[place] [facility] 10/17/2024 09:59:55 COVID-19, mRNA, LNP-S, PF, 100 mcg/0.5mL dose or 50 mcg/0.25mL dose 1 [place] MENDO[place] [facility] 10/17/2024 09:59:55 COVID-19, mRNA, LNP-S, PF, 100 mcg/0.5mL dose or 50 mcg/0.25mL dose 1 [place] MENDO[place] [facility] 10/17/2024 09:59:55 COVID-19, mRNA, LNP-S, PF, 100 mcg/0.5mL dose or 50 mcg/0.25mL dose 1 completed MENDO[place] [facility] 10/17/2024 09:59:55 COVID-19, mRNA, LNP-S, bivalent, PF, 50 mcg/0.5 mL or 25mcg/0.25 mL dose 2 completed MENDO[place] [facility] 10/17/2024 09:59:55 COVID-19, mRNA, LNP-S, PF, 50 mcg/0.5 mL 4 completed [place]END[place] [facility] 10/17/2024 09:59:55 pneumococcal polysaccharide PPV23 5 completed MEND[place] [facility] 10/17/2024 09:59:55 Pneumococcal conjugate PCV 13 9 completed MEND[place] [facility] 10/17/2024 09:59:55 Influenza, high-dose, trivalent, PF 9 completed [place] [facility] 10/17/2024 09:59:55 tetanus toxoid, adsorbed 3 completed [place]END[place] [facility] 10/17/2024 09:59:55 Influenza, split virus, quadrivalent, PF 7 completed Reginaldo Maj[place] [facility] 10/17/2024 09:59:55 Influenza, split virus, quadrivalent, PF 8 completed Reginaldo [place] [facility] 10/17/2024 09:59:55 Influenza, high-dose, trivalent, PF 4 completed Natasha Hutchins MD Attn: Accounting,[address] [place], [address], [facility] - [facility] 10/17/2024 13:39:27 Past Encounters Encounter ID Performer Location Encounter Start Date Encounter Closed Date Diagnosis/Indication Diagnosis SNOMED-CT Code Diagnosis ICD10 Code Diagnosis Note [id number] MD Carie Hillman (Adult Med) [address] [place] [address] [id number] 0 02/16/2024 09:41:51 02/16/2024 10:47:27 Essential hypertension 88715914 I10 Hyperlipidemia 78563125 E78.5 Type 2 carlota betes mellitus without complication 160275592 E11.9 Gastroesop hageal reflux disease without esophagitis 257014881 K21.9 Vitamin D below reference range 074042911 E55.9 [id number] MD Carie Hillman (Adult Med) [address] [place] [address] [phone] 0 06/16/2024 09:44:35 06/16/2024 11:04:01 Smoker 03607673 F17.200 Overweight 807369123 E66 .3 Type 2 carlota betes mellitus 98551761 E11.9 Gastroesop hageal reflux disease 325413362 K21.9 Essential hypertension 56775730 I10 Hyperlipidemia 91553741 E78.5 Type 2 carlota betes mellitus without complication 701778517 E11.9 Gastroesop hageal reflux disease without esophagitis 725071699 K21.9 [id number] Natasha Hutchins MD [facility] (Adult Med) [address] [place] [address] 23155-106 0 10/17/2024 10:39:20 10/17/2024 11:52:02 Body mass index 25-29 - overweight 604271766 Z68.26 Essential hypertension 82989004 I10 Gastroesop hageal reflux disease without esophagitis 430199275 K21.9 Hyperlipidemia 51303651 E78.5 Type 2 carlota betes mellitus without complication 502344630 E11.9 Vitamin D below reference range 548346231 E55.9 Screening mammography 24 193974 Z12.31 Administra tion of influenza vaccine 00403982 Z23 [id number] MD Carie Hillman (Adult Med) [address] [place] [address] [id number] 0 02/20/2025 10:48:53 02/20/2025 11:50:37 Overweight in adulthood with body mass index of 25 or more but less than 30 681250627 Z68.26 Overweight 767680244 E66 .3 Essential hypertension 45463047 I10 Type 2 carlota betes mellitus 40437178 E11.9 Gastroesop hageal reflux disease without esophagitis 917477565 K21.9 Type 2 carlota betes mellitus without complication 873683397 E11.9 Hyperlipidemia 09740506 E78.5 Vitamin D below reference range 622719049 E55.9 Cervical radiculopathy 50846606 M54.12 [id number] Natasha Hutchins MD [facility] (Adult Med) [address] [place] [address] [id number] 0 03/09/2025 11:30:18 03/09/2025 12:04:39 Health Concerns Section Related Observation LastModified by Organization Detai ls LastModified Time None Recorded Concern Status LastModified by Organization Details LastModified Time None Recorded Advance Directives Directive N: Payers Insurance Date Sequence Insurance Name Policy Number Policy Shetty Covered Member ID Shetty Member ID Guarantor Name 03/08/2025 [place] [facility] - [facility] Neelam Pettit [id number] Neelam Pettit 03/08/2025 2 [facility] Neelam Pettit [id number] Neelam Pettit 03/08/2025 1 [place] Neelam Pettit [id number] Neelam Pettit Notes Date Note Type Note Provider Name and Address Organization Details Recorded Time 02/16/2024 text/html 68-year-old with a history of hypertension hyperlipidemia type 2 diabetes GERD ischemic colitis low vitamin D level IBS smoker osteoarthritis chronic low back pain chronic urinary incontinence. Overall stable hypertension no headache or dizziness hyperlipidemia she is taking her medication with no side effects try to follow low-fat diet diabetes sugars used to run 70 to about 90 now they are up to about 120 in the morning we had cut back on her glum her glimepiride to 0.5 mg daily GERD stable on omeprazole oxybutynin helps with her urinary incontinence she takes Diclegis Cyclomen for her IBS and Natasha Hutchins MD Attn: Accounting[address] [place], [address], [facility] 02/16/2024 11:09:59 06/16/2024 text/html GERD no nausea n o vomiting .diabetes A1c point of care today 9.8 .dyslipidemia she can do better with diet . continues to smoke . hypertension no headache or dizziness Natasha Hutchins MD Attn: Accounting[address] [facility], [place], [address], [facility] 06/17/2024 12:32:08 10/17/2024 text/html hypertension no headache no dizziness. Diabetes she states that she was sugars have been doing better without polyphagia or polydipsia she has been running about 140-160. Hyperlipidemia trying to decrease red meat low vitamin-D level needs to be checked. Low back pain stable nothing new there. History of SVT remotely and there has not been any palpitations. She did also have a history of ischemic colitis years ago and she is without any symptoms referable to that she does carry some irritable bowel symptoms but those have been doing okay Natasha Hutchins MD Attn: Accounting[address] [facility], [place], [address], [facility] 10/17/2024 13:41:37 02/20/2025 text/html GERD no nausea n o vomiting .diabetes no polyphagia or polydipsia but needs blood work.dyslipidemia she can do better with diet . continues to smoke . hypertension no headache or dizziness has had SVT in the past and that has been quiescent. One episode of ischemic colitis years ago in her stomach just has not been right since her cervical radiculopathy has been stable Natasha Hutchins MD Attn: Accounting[address] [facility], [place], [address], [facility] 02/25/2025 16:35:08 OBGyn Episode No OBEpisode recorded.
--- OUTSIDE RECORDS SUMMARY | 2025-05-22 07:10 | XMS_ITS | Encounter Summary ---
Author Organization [facility] Address [address] [place] [address] Care Team Providers Care Pathology Technician Name Role Phone Unavailable Primary Care Provider Unavailabl e Encounter Details Date Type Department Care Team (Latest Contact Info) Description 02/11/1999 Outpatient Historical HIS [facility] VINCENT Hoffmann, Tim Sunshine MD [address] [place] [address] Mastodynia (Primary Dx) Social History Tobacco Use Types Packs/Day Years Used Date Smoking Tobacco: Never Assessed Comments Unknown Sex and Gender Information Value Date Recorded Sex Assigned at Not on file 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
--- OUTSIDE RECORDS SUMMARY | 2025-05-22 07:10 | XMS_ITS | Continuity of Care Document ---
Author Organization [facility] Address [address] [place] [address] Phone Care Team Providers Care Merchandise Displayer Name Role Phone Ian Yang Unavailable Unavailable Procedures Procedure Date Post-op Follow-up Visit After Cataract Laser Surgery Eye Exam & Treatment Post-op Follow-up Visit Post-op Follow-up Visit Post-op Follow-up Visit Post-op Follow-up Visit Remove Cataract, Insert Lens Eye Exam Established Pt IOLMaster Eye Exam Established Pt Ophthalmoscopy, Subsequent Injection Eye Drug Unclassified Drug Office Consultation Injection Eye Drug Unclassified Drug Ophthalmoscopy Fluorescein Angiography Fundus Photography W/ Report Fluorescein Angiography Eye Exam, New Patient Advance Directives Directive Yes / No Effective Date File Name No Information Encounters Encounter Description Practice Location Reason(s) For Visit Diagnoses Date Provider Providers Copied on Encounter [facility], [address], [place], [place], [id number], [place] tel:[phone] [facility] No Information 4-201 0 Celia Sosa. [address], [place], [address], [place]. tel:[phone] [facility], [address], [place], [place], [address], [place] tel:[phone] [facility] No Information 9-201 0 Krishnasamy Ian. [address], [place], [address], [place]. tel:[phone] [facility], [address], [place], [place], [address], [place] tel:[phone] [facility] No Information 6-201 0 Krishnasamy Ian. [address], [place], [address], [place]. tel:[phone] [facility], [address], [place], [place], [address], [place] tel:[phone] [facility] No Information 0-200 9 Krishnasamy Ian. [address], [place], [address], [place]. tel:[phone] [facility], [address], [place], [place], [address], [place] tel:[phone] [facility] No Information 7-200 9 Krishnasamy Ian. [address], [place], [address], [place]. tel:[phone] [facility], [address], [place], [place], [address], [place] tel:[phone] [facility] No Information 0-200 9 Krishnasamy Ian. [address], [place], [address], [place]. tel:[phone] [facility], [address], [place], [place], [address], [place] tel:[phone] [facility] No Information 9 Krishnasamy Ian. [address], [place], [address], [place]. tel:[phone] [facility], [address], [place], [place], [address], [place] tel:[phone] [facility] No Information 9 Krishnasamy Ian. [address], [place], [address], [place]. tel:[phone] [facility], [address], [place], [place], [address], [place] tel:[phone] [facility] No Information 9 Krishnasamy Ian. [address], [place], [address], [place]. tel:[phone] [facility], [address], [place], [place], [address], [place] tel:[phone] [facility] No Information [address] Tenisha Dumont. [address] [place], [place], [facility], [place]. tel:[phone] Referring Provider: Tim Canales, [address] [place], [address]. tel:[phone] Office Consultation [facility], [address] [place] [address] [address], [place], [place], [address], [place] tel:[phone] [facility] No Information 3[address] 8 Tenisha Dumont. [address], [place], [facility], [place]. tel:[phone] Referring Provider: Bladimir Phoenix, [address], [place], [address]. tel:[phone] [facility], [address], [place], [place], [address], [place] tel:[phone] [facility] No Information 2[address] Garrisonclive Bladimir. [address], [place], [address], [place]. tel:[phone] Family History Family Member Type Diagnosis Age At Onset No Information Payers Payer name Insurance type Covered republican ID Authoriza tion(s) No Information Social History Type Description Quantity Date Captured Comments Sex Female Smoking Status No Information Chief Complaint And Reason For Visit No Information Reason For Referral Reason For Referral No Information History Of Present Illness Encounter Date Complaint History Of Prese nt Illness No Information Functional Status Date Functional Assessmen t No Information Instructions Date Instruction Additional Infor mation No Information Assessments Type Assessment Date No Information Patient Care Teams Name Effective Dates (start - stop) Status Members No Information
--- OUTSIDE RECORDS SUMMARY | 2025-05-22 07:10 | XMS_ITS | Data Portability ---
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 [email or web address] Not available 02/15/2023 10:42:56 06/21/2023 06/21/2023 Abdominal examination unremarkable CT scan reviewed MiraLax recommended GI consultation offered and she refuses last blood work reviewed continue current therapy follow-up in 4 months [email or web address] Not available 07/05/2023 18:24:03 10/04/2023 10/04/2023 Will continue current therapy follow-up for my flu shot today [email or web address] Not available 10/09/2023 12:09:41 Plan of Treatment Reminders Order Date Submit Date Provider Last Modified By Organization Details Last Modified Time Details Appointments None recorded. Lab CMP, serum or plasma 2022 023 [facility] (Lab), [address] [place], [address], 13:11:08 lipid panel, serum 2022 023 [facility] (Lab), [address] [place], [address], 3 13:11:34 CBC w/ auto diff 2022 023 [facility] (Lab), [address] [place], [address], 3 13:39:25 glycohemog lobin, total, blood 2022 023 [facility] (Lab), [address] [place], [address], 3 20:43:15 Referral None recorded. Procedures None recorded. Surgeries None recorded. Imaging CT, abdomen + pelvis, w/ contrast 2022 023 [facility] ([facility]), [address] [place], [address], 3 12:38:12 Medication Orders None recorded. Patient TargetsNo targets recorded. Patient InstructionsNo instructions recorded. Reason for Referral None Reported. Results Created Date Observation Date Name Description Value Unit Range Abnormal Flag Note LastModifiedBy Organization Detail LastModifiedTime 06/01/20 22 06/01/2022 HEMOG LOBIN A1C HA1C 7.9 % 4.0-6. 0 high Diabe armando Scree bogdan Crite darcie: <5.7% Consi stent with absen ce of diabe armando 5.7-6 .4% Consi stent with incre ased risk for diabe armando (pred iabet es) >OR=6 .5% Consi stent with diabe armando REFER ENCE: Diabe armando Care 2016, 39(Atkins ppl.1 ):s13 -s22 Not Available [facility] (Lab) [address] [place], [address], 06/01/2022 20:40:55 06/01/20 22 06/01/2022 MICRO ALBUM N RNDM W/CRE AT RATIO ur creat 127.97 mg/dL REFER ENCE RANGE NOT ESTAB LISHE D FOR RANDO M URINE CREAT ININE Not Available [facility] (Lab) [address] [place], [address], 06/01/2022 14:53:26 06/01/20 22 06/01/2022 MICRO ALBUM N RNDM W/CRE AT RATIO microalbumin , urine 33.1 mg/L 0.0-16 .6 high Not Available [facility] (Lab) [address] [place], [address], 06/01/2022 14:53:26 06/01/20 22 06/01/2022 MICRO ALBUM N RNDM W/CRE AT RATIO microalbumin /creatinine ratio 26 mcg/m g 0-29 THE AMERI CAN DIABE ARMANDO ASSOC IATIO N DEFIN ES ABNOR MALIT IES IN ALBUM IN EXCRE TION FOLLO WS: CATEG ORY RESUL T (MCG/ MG CREAT ININE ) OTTONIEL L <30 MICRO ALBUM INURI A 30-29 9 [facility] ALBUM INURI A > OR = 300 THE ADA RECOM MENDS THAT 2 OF 2 SPECI MENS COLLE CTED WITHI N A 3- TO 6-MON TH PERIO D BE ABNOR MAL BEFOR E CONSI MORELIA G A PATIE NT TO HAVE CROSS ED ONE OF THESE DIAGN OSTIC THRES HOLDS . REFER ENCE: DIABE ARMANDO CARE, VOL. 26: S94-S 2002 Not Available [facility] (Lab) [address] [place], [address], 06/01/2022 14:53:26 06/01/20 22 06/01/2022 LIPID PANEL cholesterol 124 mg/dL 140-19 9 low NIH PAMELA NSUS RECOM MENDA TION FOR NATY STERO L: ADULT CHILD LOW RISK: <200 <170 BORDE RLINE : <200- 239 ----- HIGH RISK: >240 >200 Not Available [facility] (Lab) [address] [place], [address], 06/01/2022 14:40:38 06/01/20 22 06/01/2022 LIPID PANEL triglyceride s 115 mg/dL 0-150 NIH PAMELA NSUS REPOR T RECOM MENDA TION FOR TRIGL YCERI ALVIN: ADULT CHILD LOW RISK: <150 ----- BODER LINE: 150-1 99 ----- HIGH RISK: >200 ----- Not Available [facility] (Lab) [address] [place], [address], 06/01/2022 14:40:38 06/01/20 22 06/01/2022 LIPID PANEL HDL cholesterol 45 mg/dL 40- Not Available [facility] (Lab) [address] [place], [address], 06/01/2022 14:40:38 06/01/20 22 06/01/2022 LIPID PANEL LDL cholesterol, calculated 56 mg/dL 0-130 NIH PAMELA NSUS REPOR T RECOM MENDA TIONS FOR LDL: ADULT CHILD LOW RISK <130 <110 (OPTI MAL LDL) <100 ----- BORDE RLINE : 130-1 59 ----- HIGH RISK: >160 >130 A TRIGL YCERI DE RESUL T >400 INVAL IDATE S THE CALCU LATIO N FOR LDL FRACT IONAT ION - THE LDL RESUL T WILL NOT BE REPOR SHAYLA. Not Available [facility] (Lab) [address] [place], [address], 06/01/2022 14:40:38 06/01/20 22 06/01/2022 COMPR EHENS WAN METAB OLIC PANEL carbon dioxide 23 mmol/ L 22-30 Not Available [facility] (Lab) [address] [place], [address], 06/01/2022 14:40:34 06/01/20 22 06/01/2022 COMPR EHENS WAN METAB OLIC PANEL sodium 141 mmol/ L 137-14 5 Not Available [facility] (Lab) [address] [place], [address], 06/01/2022 14:40:34 06/01/20 22 06/01/2022 COMPR EHENS WAN METAB OLIC PANEL potassium 4.8 mmol/ L 3.5-5. 1 Not Available [facility] (Lab) [address] [place], [address], 06/01/2022 14:40:34 06/01/20 22 06/01/2022 COMPR EHENS WAN METAB OLIC PANEL chloride 104 mmol/ L 98-107 Not Available [facility] (Lab) [address] [place], [address], 06/01/2022 14:40:34 06/01/20 22 06/01/2022 COMPR EHENS WAN METAB OLIC PANEL anion gap 18.8 mmol/ L 14-22 Not Available [facility] (Lab) [address] [place], [address], 06/01/2022 14:40:34 06/01/20 22 06/01/2022 COMPR EHENS WAN METAB OLIC PANEL glucose 108 mg/dL 70-99 high Not Available [facility] (Lab) [address] [place], [address], 06/01/2022 14:40:34 06/01/20 22 06/01/2022 COMPR EHENS WAN METAB OLIC PANEL BUN 25 mg/dL 8-19 high Not Available [facility] (Lab) [address] [place], [address], 06/01/2022 14:40:34 06/01/20 22 06/01/2022 COMPR EHENS WAN METAB OLIC PANEL creatinine 0.99 mg/dL 0.66-1 .25 Not Available [facility] (Lab) [address] [place], [address], 06/01/2022 14:40:34 06/01/20 22 06/01/2022 COMPR EHENS WAN METAB OLIC PANEL GFR 56 Refer ence Range : [place] ge GFR Healt hy Adult : >60 mL/mi n/1.7 3 m2 Chron ic Kidne y Disea se: 15-60 mL/mi n/1.7 3 m2 Kidne y Failu re: <15/m L/min /1.73 m2 www.n iddk. nih.g ov The MDRD study equat ion has not been valid ated in child jorge alberto <18 years of age; pregn ant women ; the elder ly >85 years of age; or in some racia l or ethni c subgr oups, such as Hispa nics. Outsi de the valid ated ankush eters , estim ated GFR is less accur ate, requi ring clini franck judgm ent on a case- by-ca se basis . Clini franck inter preta tion for other races and ages must be made by the clini fan. The MDRD study equat ion has not been valid ated for the evalu ation of serum creat inine relat ed to nutri irwin l statu s or medic ation usage . For perso ns <18 years of age, a pedia tric GFR calcu lator is avail able on the [facility] websi te: https :[email or web address] che.[facility]wick [facility]brook.o rg/pr ofess ional s/kdo qi/gf r_cal culat or Not Available [facility] (Lab) [address] [place], [address], 06/01/2022 14:40:34 06/01/20 22 06/01/2022 COMPR EHENS WAN METAB OLIC PANEL alkaline phosphatase 93 U/L 38-126 Not Available [facility] (Lab) [address] [place], [address], 06/01/2022 14:40:34 06/01/20 22 06/01/2022 COMPR EHENS WAN METAB OLIC PANEL alanine aminotransfe rase 27 U/L 0-35 Not Available [facility] (Lab) [address] [place], [address], 06/01/2022 14:40:34 06/01/20 22 06/01/2022 COMPR EHENS WAN METAB OLIC PANEL aspartate aminotransfe rase 31 U/L 15-37 Not Available [facility] (Lab) [address] [place], [address], 06/01/2022 14:40:34 06/01/20 22 06/01/2022 COMPR EHENS WAN METAB OLIC PANEL bilirubin, total 0.30 mg/dL 0.20-1 .30 Not Available [facility] (Lab) [address] [place], [address], 06/01/2022 14:40:34 06/01/20 22 06/01/2022 COMPR EHENS WAN METAB OLIC PANEL calcium 9.7 mg/dL 8.4-10 .2 Not Available [facility] (Lab) [address] [place], [address], 06/01/2022 14:40:34 06/01/20 22 06/01/2022 COMPR EHENS WAN METAB OLIC PANEL total protein 8.5 g/dL 6.3-8. 2 high Not Available [facility] (Lab) [address] [place], [address], 06/01/2022 14:40:34 06/01/20 22 06/01/2022 COMPR EHENS WAN METAB OLIC PANEL albumin 4.8 g/dL 3.0-4. 4 high Not Available [facility] (Lab) [address] [place], [address], 06/01/2022 14:40:34 06/01/20 22 06/01/2022 COMPR EHENS WAN METAB OLIC PANEL globulin 3.7 g/dL 2.6-4. 2 Not Available [facility] (Lab) [address] [place], [address], 06/01/2022 14:40:34 06/01/20 22 06/01/2022 COMPR EHENS WAN METAB OLIC PANEL A/G ratio 1.3 ratio 1.0-2. 0 Not Available [facility] (Lab) [address] [place], [address], 06/01/2022 14:40:34 06/01/20 22 06/01/2022 CBC/C OMPLE TE BLD COUNT W/DIF F red blood cells 4.24 x10'6 /uL 3.80-5 .20 Not Available [facility] (Lab) [address] [place], [address], 06/01/2022 14:27:47 06/01/20 22 06/01/2022 CBC/C OMPLE TE BLD COUNT W/DIF F hemoglobin 13.6 g/dL 12.0-1 5.6 Not Available [facility] (Lab) [address] [place], [address], 06/01/2022 14:27:47 06/01/20 22 06/01/2022 CBC/C OMPLE TE BLD COUNT W/DIF F hematocrit 41.9 % 35.7-4 5.7 Not Available [facility] (Lab) [address] [place], [address], 06/01/2022 14:27:47 06/01/20 22 06/01/2022 CBC/C OMPLE TE BLD COUNT W/DIF F mean red cell volume 98.8 fL 82.0-9 9.0 Not Available [facility] (Lab) [address] [place], [address], 06/01/2022 14:27:47 06/01/20 22 06/01/2022 CBC/C OMPLE TE BLD COUNT W/DIF F mean red cell hemoglobin 32.1 pg 27.0-3 3.0 Not Available [facility] (Lab) [address] [place], [address], 06/01/2022 14:27:47 06/01/20 22 06/01/2022 CBC/C OMPLE TE BLD COUNT W/DIF F mean RBC HGB concentratio n 32.5 g/dL 31.0-3 6.0 Not Available [facility] (Lab) [address] [place], [address], 06/01/2022 14:27:47 06/01/20 22 06/01/2022 CBC/C OMPLE TE BLD COUNT W/DIF F red cell distribution width 12.8 % 11.8-1 5.5 Not Available [facility] (Lab) [address] [place], [address], 06/01/2022 14:27:47 06/01/20 22 06/01/2022 CBC/C OMPLE TE BLD COUNT W/DIF F platelets 239 x10'3 /uL 150-40 0 Not Available [facility] (Lab) [address] [place], [address], 06/01/2022 14:27:47 06/01/20 22 06/01/2022 CBC/C OMPLE TE BLD COUNT W/DIF F mean platelet volume 12.4 fL 9.0-12 .4 Not Available [facility] (Lab) [address] [place], [address], 06/01/2022 14:27:47 06/01/20 22 06/01/2022 CBC/C OMPLE TE BLD COUNT W/DIF F neutrophils 55.6 % 39.0-7 2.0 Not Available [facility] (Lab) [address] [place], [address], 06/01/2022 14:27:47 06/01/20 22 06/01/2022 CBC/C OMPLE TE BLD COUNT W/DIF F lymphocytes 36.2 % 16.0-4 7.0 Not Available [facility] (Lab) [address] [place], [address], 06/01/2022 14:27:47 06/01/20 22 06/01/2022 CBC/C OMPLE TE BLD COUNT W/DIF F monocytes 6.2 % 5.0-12 .0 Not Available [facility] (Lab) [address] [place], [address], 06/01/2022 14:27:47 06/01/20 22 06/01/2022 CBC/C OMPLE TE BLD COUNT W/DIF F eosinophils 1.3 % 1.0-7. 0 Not Available [facility] (Lab) [address] [place], [address], 06/01/2022 14:27:47 06/01/20 22 06/01/2022 CBC/C OMPLE TE BLD COUNT W/DIF F basophils 0.4 % 0.0-2. 0 Not Available [facility] (Lab) [address] [place], [address], 06/01/2022 14:27:47 06/01/20 22 06/01/2022 CBC/C OMPLE TE BLD COUNT W/DIF F immature granulocytes 0.3 % 0.00-0 .50 Not Available [facility] (Lab) [address] [place], [address], 06/01/2022 14:27:47 06/01/20 22 06/01/2022 CBC/C OMPLE TE BLD COUNT W/DIF F neutrophils, absolute count 5.78 x10'3 /uL 1.5-8. 0 Not Available [facility] (Lab) [address] [place], [address], 06/01/2022 14:27:47 06/01/20 22 06/01/2022 CBC/C OMPLE TE BLD COUNT W/DIF F lymphocytes, absolute count 3.76 x10'3 /uL 1.07-3 .43 high Not Available [facility] (Lab) [address] [place], [address], 06/01/2022 14:27:47 06/01/20 22 06/01/2022 CBC/C OMPLE TE BLD COUNT W/DIF F monocytes, absolute count 0.64 x10'3 /uL 0.29-0 .99 Not Available [facility] (Lab) [address] [place], [address], 06/01/2022 14:27:47 06/01/20 22 06/01/2022 CBC/C OMPLE TE BLD COUNT W/DIF F eosinophils, absolute count 0.14 x10'3 /uL 0.02-0 .53 Not Available [facility] (Lab) [address] [place], [address], 06/01/2022 14:27:47 06/01/20 22 06/01/2022 CBC/C OMPLE TE BLD COUNT W/DIF F basophils, absolute count 0.04 x10'3 /uL 0.01-0 .08 Not Available [facility] (Lab) [address] [place], [address], 06/01/2022 14:27:47 06/01/20 22 06/01/2022 CBC/C OMPLE TE BLD COUNT W/DIF F immature granulocytes ,absolute 0.03 x10'3 /uL 0.00-0 .05 Not Available [facility] (Lab) [address] [place], [address], 06/01/2022 14:27:47 06/01/20 22 06/01/2022 CBC/C OMPLE TE BLD COUNT W/DIF F nucleated red blood cells 0.0 % -0 Not Available [facility] (Lab) [address] [place], [address], 06/01/2022 14:27:47 06/01/20 22 06/01/2022 CBC/C OMPLE TE BLD COUNT W/DIF F NRBC# 0.00 x10'3 /uL Not Available [facility] (Lab) [address] [place], [address], 06/01/2022 14:27:47 06/01/20 22 06/01/2022 CBC/C OMPLE TE BLD COUNT W/DIF F white blood cells 10.4 x10'3 /uL 4.2-10 .8 Not Available [facility] (Lab) [address] [place], [address], 06/01/2022 14:27:47 10/19/20 22 10/19/2022 FOLAT E, SERUM /PLAS MA folate 7.00 NG/mL 2.76-2 0.0 Not Available [facility] (Lab) [address] [place], [address], 10/19/2022 15:47:42 10/19/20 22 10/19/2022 VITAM IN B12 (BRITANY DAVID ) vb12 402 pg/mL 239-93 1 Not Available [facility] (Lab) [address] [place], [address], 10/19/2022 15:47:35 10/19/20 22 10/19/2022 HEMOG LOBIN A1C HA1C 7.4 % 4.0-6. 0 high Diabe armando Scree bogdan Crite darcie: <5.7% Consi stent with absen ce of diabe armando 5.7-6 .4% Consi stent with incre ased risk for diabe armando (pred iabet es) >OR=6 .5% Consi stent with diabe armando REFER ENCE: Diabe armando Care 2016, 39(Atkins ppl.1 ):s13 -s22 Not Available [facility] (Lab) [address] [place], [address], 10/19/2022 13:17:12 10/19/20 22 10/19/2022 TSH thyroid-stim ulating hormone 1.430 uIU/m L 0.465- 4.680 Not Available [facility] (Lab) [address] [place], [address], 10/19/2022 12:40:43 10/19/20 22 10/19/2022 T4 FREE free T4 1.18 NG/dL 0.78-2 .19 Not Available [facility] (Lab) [address] [place], [address], 10/19/2022 12:31:40 10/19/20 22 10/19/2022 T3 FREE free T3 3.9 pg/mL 2.77-5 .27 Not Available [facility] (Lab) [address] [place], [address], 10/19/2022 12:31:35 10/19/20 22 10/19/2022 LIPID PANEL LDL cholesterol, calculated 62 mg/dL 0-130 NIH PAMELA NSUS REPOR T RECOM MENDA TIONS FOR LDL: ADULT CHILD LOW RISK <130 <110 (OPTI MAL LDL) <100 ----- BORDE RLINE : 130-1 59 ----- HIGH RISK: >160 >130 A TRIGL YCERI DE RESUL T >400 INVAL IDATE S THE CALCU LATIO N FOR LDL FRACT IONAT ION - THE LDL RESUL T WILL NOT BE REPOR SHAYLA. Not Available [facility] (Lab) [address] [place], [address], 10/19/2022 12:18:32 10/19/20 22 10/19/2022 LIPID PANEL cholesterol 140 mg/dL 140-19 9 NIH PAMELA NSUS RECOM MENDA TION FOR NATY STERO L: ADULT CHILD LOW RISK: <200 <170 BORDE RLINE : <200- 239 ----- HIGH RISK: >240 >200 Not Available [facility] (Lab) [address] [place], [address], 10/19/2022 12:18:32 10/19/20 22 10/19/2022 LIPID PANEL triglyceride s 154 mg/dL 0-150 high NIH PAMELA NSUS REPOR T RECOM MENDA TION FOR TRIGL YCERI ALVIN: ADULT CHILD LOW RISK: <150 ----- BODER LINE: 150-1 99 ----- HIGH RISK: >200 ----- Not Available [facility] (Lab) [address] [place], [address], 10/19/2022 12:18:32 10/19/20 22 10/19/2022 LIPID PANEL HDL cholesterol 47 mg/dL 40- Not Available [facility] (Lab) [address] [place], [address], 10/19/2022 12:18:32 10/19/20 22 10/19/2022 COMPR EHENS WAN METAB OLIC PANEL carbon dioxide 21 mmol/ L 22-30 low Not Available [facility] (Lab) [address] [place], [address], 10/19/2022 12:18:29 10/19/20 22 10/19/2022 COMPR EHENS WAN METAB OLIC PANEL sodium 141 mmol/ L 137-14 5 Not Available [facility] (Lab) [address] [place], [address], 10/19/2022 12:18:29 10/19/20 22 10/19/2022 COMPR EHENS WAN METAB OLIC PANEL potassium 4.7 mmol/ L 3.5-5. 1 Not Available [facility] (Lab) [address] [place], [address], 10/19/2022 12:18:29 10/19/20 22 10/19/2022 COMPR EHENS WAN METAB OLIC PANEL chloride 107 mmol/ L 98-107 Not Available [facility] (Lab) [address] [place], [address], 10/19/2022 12:18:29 10/19/20 22 10/19/2022 COMPR EHENS WAN METAB OLIC PANEL anion gap 17.7 mmol/ L 14-22 Not Available [facility] (Lab) [address] [place], [address], 10/19/2022 12:18:29 10/19/20 22 10/19/2022 COMPR EHENS WAN METAB OLIC PANEL glucose 104 mg/dL 70-99 high Not Available [facility] (Lab) [address] [place], [address], 10/19/2022 12:18:29 10/19/20 22 10/19/2022 COMPR EHENS WAN METAB OLIC PANEL BUN 25 mg/dL 8-19 high Not Available [facility] (Lab) [address] [place], [address], 10/19/2022 12:18:29 10/19/20 22 10/19/2022 COMPR EHENS WAN METAB OLIC PANEL creatinine 1.13 mg/dL 0.66-1 .25 Not Available [facility] (Lab) [address] [place], [address], 10/19/2022 12:18:29 10/19/20 22 10/19/2022 COMPR EHENS WAN METAB OLIC PANEL GFR 48 Refer ence Range : [place] ge GFR Healt hy Adult : >60 mL/mi n/1.7 3 m2 Chron ic Kidne y Disea se: 15-60 mL/mi n/1.7 3 m2 Kidne y Failu re: <15/m L/min /1.73 m2 www.n iddk. nih.g ov The MDRD study equat ion has not been valid ated in child jorge alberto <18 years of age; pregn ant women ; the elder ly >85 years of age; or in some racia l or ethni c subgr oups, such as Hisny nics. Outsi de the valid ated ankush eters , estim ated GFR is less accur ate, requi ring clini franck judgm ent on a case- by-ca se basis . Clini franck inter preta tion for other races and ages must be made by the clini fan. The MDRD study equat ion has not been valid ated for the evalu ation of serum creat inine relat ed to nutri irwin l statu s or medic ation usage . For perso ns <18 years of age, a pedia tric GFR calcu lator is avail able on the [facility] websi te: https :[email or web address] [email or web address] [email or web address] rg/pr ofess ional s/kdo qi/gf r_cal culat or Not Available [facility] (Lab) [address] [place], [address], 10/19/2022 12:18:29 10/19/20 22 10/19/2022 COMPR EHENS WAN METAB OLIC PANEL alkaline phosphatase 105 U/L 38-126 Not Available [facility] (Lab) [address] [place], [address], 10/19/2022 12:18:29 10/19/20 22 10/19/2022 COMPR EHENS WAN METAB OLIC PANEL alanine aminotransfe rase 33 U/L 0-35 Not Available [facility] (Lab) [address] [place], [address], 10/19/2022 12:18:29 10/19/20 22 10/19/2022 COMPR EHENS WAN METAB OLIC PANEL aspartate aminotransfe rase 31 U/L 15-37 Not Available [facility] (Lab) [address] [place], [address], 10/19/2022 12:18:29 10/19/20 22 10/19/2022 COMPR EHENS WAN METAB OLIC PANEL bilirubin, total 0.30 mg/dL 0.20-1 .30 Not Available [facility] (Lab) [address] [place], [address], 10/19/2022 12:18:29 10/19/20 22 10/19/2022 COMPR EHENS WAN METAB OLIC PANEL calcium 9.7 mg/dL 8.4-10 .2 Not Available [facility] (Lab) [address] [place], [address], 10/19/2022 12:18:29 10/19/20 22 10/19/2022 COMPR EHENS WAN METAB OLIC PANEL total protein 8.6 g/dL 6.3-8. 2 high Not Available [facility] (Lab) [address] [place], [address], 10/19/2022 12:18:29 10/19/20 22 10/19/2022 COMPR EHENS WAN METAB OLIC PANEL albumin 4.8 g/dL 3.0-4. 4 high Not Available [facility] (Lab) [address] [place], [address], 10/19/2022 12:18:29 10/19/20 22 10/19/2022 COMPR EHENS WAN METAB OLIC PANEL globulin 3.8 g/dL 2.6-4. 2 Not Available [facility] (Lab) [address] [place], [address], 10/19/2022 12:18:29 10/19/20 22 10/19/2022 COMPR EHENS WAN METAB OLIC PANEL A/G ratio 1.3 ratio 1.0-2. 0 Not Available [facility] (Lab) [address] [place], [address], 10/19/2022 12:18:29 10/19/20 22 10/19/2022 CBC/C OMPLE TE BLD COUNT W/DIF F neutrophils 51.3 % 39.0-7 2.0 Not Available [facility] (Lab) [address] [place], [address], 10/19/2022 11:56:56 10/19/20 22 10/19/2022 CBC/C OMPLE TE BLD COUNT W/DIF F white blood cells 10.8 x10'3 /uL 4.2-10 .8 Not Available [facility] (Lab) [address] [place], [address], 10/19/2022 11:56:56 10/19/20 22 10/19/2022 CBC/C OMPLE TE BLD COUNT W/DIF F red blood cells 4.10 x10'6 /uL 3.80-5 .20 Not Available [facility] (Lab) [address] [place], [address], 10/19/2022 11:56:56 10/19/20 22 10/19/2022 CBC/C OMPLE TE BLD COUNT W/DIF F hemoglobin 13.2 g/dL 12.0-1 5.6 Not Available [facility] (Lab) [address] [place], [address], 10/19/2022 11:56:56 10/19/20 22 10/19/2022 CBC/C OMPLE TE BLD COUNT W/DIF F hematocrit 40.8 % 35.7-4 5.7 Not Available [facility] (Lab) [address] [place], [address], 10/19/2022 11:56:56 10/19/20 22 10/19/2022 CBC/C OMPLE TE BLD COUNT W/DIF F mean red cell volume 99.5 fL 82.0-9 9.0 high Not Available [facility] (Lab) [address] [place], [address], 10/19/2022 11:56:56 10/19/20 22 10/19/2022 CBC/C OMPLE TE BLD COUNT W/DIF F mean red cell hemoglobin 32.2 pg 27.0-3 3.0 Not Available [facility] (Lab) [address] [place], [address], 10/19/2022 11:56:56 10/19/20 22 10/19/2022 CBC/C OMPLE TE BLD COUNT W/DIF F mean RBC HGB concentratio n 32.4 g/dL 31.0-3 6.0 Not Available [facility] (Lab) [address] [place], [address], 10/19/2022 11:56:56 10/19/20 22 10/19/2022 CBC/C OMPLE TE BLD COUNT W/DIF F red cell distribution width 12.4 % 11.8-1 5.5 Not Available [facility] (Lab) [address] [place], [address], 10/19/2022 11:56:56 10/19/20 22 10/19/2022 CBC/C OMPLE TE BLD COUNT W/DIF F platelets 264 x10'3 /uL 150-40 0 Not Available [facility] (Lab) [address] [place], [address], 10/19/2022 11:56:56 10/19/20 22 10/19/2022 CBC/C OMPLE TE BLD COUNT W/DIF F mean platelet volume 11.6 fL 9.0-12 .4 Not Available [facility] (Lab) [address] [place], [address], 10/19/2022 11:56:56 10/19/20 22 10/19/2022 CBC/C OMPLE TE BLD COUNT W/DIF F lymphocytes 39.0 % 16.0-4 7.0 Not Available [facility] (Lab) [address] [place], [address], 10/19/2022 11:56:56 10/19/20 22 10/19/2022 CBC/C OMPLE TE BLD COUNT W/DIF F monocytes 7.3 % 5.0-12 .0 Not Available [facility] (Lab) [address] [place], [address], 10/19/2022 11:56:56 10/19/20 22 10/19/2022 CBC/C OMPLE TE BLD COUNT W/DIF F eosinophils 1.6 % 1.0-7. 0 Not Available [facility] (Lab) [address] [place], [address], 10/19/2022 11:56:56 10/19/20 22 10/19/2022 CBC/C OMPLE TE BLD COUNT W/DIF F basophils 0.6 % 0.0-2. 0 Not Available [facility] (Lab) [address] [place], [address], 10/19/2022 11:56:56 10/19/20 22 10/19/2022 CBC/C OMPLE TE BLD COUNT W/DIF F monocytes, absolute count 0.79 x10'3 /uL 0.29-0 .99 Not Available [facility] (Lab) [address] [place], [address], 10/19/2022 11:56:56 10/19/20 22 10/19/2022 CBC/C OMPLE TE BLD COUNT W/DIF F immature granulocytes 0.2 % 0.00-0 .50 Not Available [facility] (Lab) [address] [place], [address], 10/19/2022 11:56:56 10/19/20 22 10/19/2022 CBC/C OMPLE TE BLD COUNT W/DIF F neutrophils, absolute count 5.56 x10'3 /uL 1.5-8. 0 Not Available [facility] (Lab) [address] [place], [address], 10/19/2022 11:56:56 10/19/20 22 10/19/2022 CBC/C OMPLE TE BLD COUNT W/DIF F lymphocytes, absolute count 4.23 x10'3 /uL 1.07-3 .43 high Not Available [facility] (Lab) [address] [place], [address], 10/19/2022 11:56:56 10/19/20 22 10/19/2022 CBC/C OMPLE TE BLD COUNT W/DIF F eosinophils, absolute count 0.17 x10'3 /uL 0.02-0 .53 Not Available [facility] (Lab) [address] [place], [address], 10/19/2022 11:56:56 10/19/20 22 10/19/2022 CBC/C OMPLE TE BLD COUNT W/DIF F basophils, absolute count 0.07 x10'3 /uL 0.01-0 .08 Not Available [facility] (Lab) [address] [place], [address], 10/19/2022 11:56:56 10/19/20 22 10/19/2022 CBC/C OMPLE TE BLD COUNT W/DIF F immature granulocytes ,absolute 0.02 x10'3 /uL 0.00-0 .05 Not Available [facility] (Lab) [address] [place], [address], 10/19/2022 11:56:56 10/19/20 22 10/19/2022 CBC/C OMPLE TE BLD COUNT W/DIF F nucleated red blood cells 0.0 % -0 Not Available [facility] (Lab) [address] [place], [address], 10/19/2022 11:56:56 10/19/20 22 10/19/2022 CBC/C OMPLE TE BLD COUNT W/DIF F NRBC# 0.00 x10'3 /uL Not Available [facility] (Lab) [address] [place], [address], 10/19/2022 11:56:56 02/16/20 23 02/15/2023 COMPR EHENS WAN METAB OLIC PANEL sodium 140 mmol/ L 137-14 5 Not Available [facility] (Lab) [address] [place], [address], 02/15/2023 13:11:08 02/16/20 23 02/15/2023 COMPR EHENS WAN METAB OLIC PANEL potassium 4.5 mmol/ L 3.5-5. 1 Not Available [facility] (Lab) [address] [place], [address], 02/15/2023 13:11:08 02/16/20 23 02/15/2023 COMPR EHENS WAN METAB OLIC PANEL chloride 103 mmol/ L 98-107 Not Available [facility] (Lab) [address] [place], [address], 02/15/2023 13:11:08 02/16/20 23 02/15/2023 COMPR EHENS WAN METAB OLIC PANEL carbon dioxide 26 mmol/ L 22-30 Not Available [facility] (Lab) [address] [place], [address], 02/15/2023 13:11:08 02/16/20 23 02/15/2023 COMPR EHENS WAN METAB OLIC PANEL anion gap 15.5 mmol/ L 14-22 Not Available [facility] (Lab) [address] [place], [address], 02/15/2023 13:11:08 02/16/20 23 02/15/2023 COMPR EHENS WAN METAB OLIC PANEL glucose 139 mg/dL 70-99 high Not Available [facility] (Lab) [address] [place], [address], 02/15/2023 13:11:08 02/16/20 23 02/15/2023 COMPR EHENS WAN METAB OLIC PANEL BUN 22 mg/dL 8-19 high Not Available [facility] (Lab) [address] [place], [address], 02/15/2023 13:11:08 02/16/20 23 02/15/2023 COMPR EHENS WAN METAB OLIC PANEL creatinine 1.09 mg/dL 0.66-1 .25 Not Available [facility] (Lab) [address] [place], [address], 02/15/2023 13:11:08 02/16/20 23 02/15/2023 COMPR EHENS WAN METAB OLIC PANEL GFR 50 Refer ence Range : [place] ge GFR Healt hy Adult : >60 mL/mi n/1.7 3 m2 Chron ic Kidne y Disea se: 15-60 mL/mi n/1.7 3 m2 Kidne y Failu re: <15/m L/min /1.73 m2 www.n iddk. nih.g ov The MDRD study equat ion has not been valid ated in child jorge alberto <18 years of age; pregn ant women ; the elder ly >85 years of age; or in some racia l or ethni c subgr oups, such as Hispa nics. Outsi de the valid ated ankush eters , estim ated GFR is less accur ate, requi ring clini franck judgm ent on a case- by-ca se basis . Clini franck inter preta tion for other races and ages must be made by the clini fan. The MDRD study equat ion has not been valid ated for the evalu ation of serum creat inine relat ed to nutri irwin l statu s or medic ation usage . For perso ns <18 years of age, a pedia tric GFR calcu lator is avail able on the [facility] websi te: https :[email or web address] w.chadwick holbrook.o rg/pr ofess ional s/kdo qi/gf r_cal culat or Not Available [facility] (Lab) [address] [place], [address], 02/15/2023 13:11:08 02/16/20 23 02/15/2023 COMPR EHENS WAN METAB OLIC PANEL alkaline phosphatase 104 U/L 38-126 Not Available [facility] (Lab) [address] [place], [address], 02/15/2023 13:11:08 02/16/20 23 02/15/2023 COMPR EHENS WAN METAB OLIC PANEL alanine aminotransfe rase 40 U/L 0-35 high Not Available [facility] (Lab) [address] [place], [address], 02/15/2023 13:11:08 02/16/20 23 02/15/2023 COMPR EHENS WAN METAB OLIC PANEL aspartate aminotransfe rase 36 U/L 15-37 Not Available [facility] (Lab) [address] [place], [address], 02/15/2023 13:11:08 02/16/20 23 02/15/2023 COMPR EHENS WAN METAB OLIC PANEL bilirubin, total 0.40 mg/dL 0.20-1 .30 Not Available [facility] (Lab) [address] [place], [address], 02/15/2023 13:11:08 02/16/20 23 02/15/2023 COMPR EHENS WAN METAB OLIC PANEL calcium 9.5 mg/dL 8.4-10 .2 Not Available [facility] (Lab) [address] [place], [address], 02/15/2023 13:11:08 02/16/20 23 02/15/2023 COMPR EHENS WAN METAB OLIC PANEL total protein 8.2 g/dL 6.3-8. 2 Not Available [facility] (Lab) [address] [place], [address], 02/15/2023 13:11:08 02/16/20 23 02/15/2023 COMPR EHENS WAN METAB OLIC PANEL albumin 4.5 g/dL 3.0-4. 4 high Not Available [facility] (Lab) [address] [place], [address], 02/15/2023 13:11:08 02/16/20 23 02/15/2023 COMPR EHENS WAN METAB OLIC PANEL globulin 3.7 g/dL 2.6-4. 2 Not Available [facility] (Lab) [address] [place], [address], 02/15/2023 13:11:08 02/16/20 23 02/15/2023 COMPR EHENS WAN METAB OLIC PANEL A/G ratio 1.2 ratio 1.0-2. 0 Not Available [facility] (Lab) [address] [place], [address], 02/15/2023 13:11:08 02/16/20 23 02/15/2023 LIPID PANEL cholesterol 128 mg/dL 140-19 9 low NIH PAMELA NSUS RECOM MENDA TION FOR NATY STERO L: ADULT CHILD LOW RISK: <200 <170 BORDE RLINE : <200- 239 ----- HIGH RISK: >240 >200 Not Available [facility] (Lab) [address] [place], [address], 02/15/2023 13:11:34 02/16/20 23 02/15/2023 LIPID PANEL triglyceride s 124 mg/dL 0-150 NIH PAMELA NSUS REPOR T RECOM MENDA TION FOR TRIGL YCERI ALVIN: ADULT CHILD LOW RISK: <150 ----- BODER LINE: 150-1 99 ----- HIGH RISK: >200 ----- Not Available [facility] (Lab) [address] [place], [address], 02/15/2023 13:11:34 02/16/20 23 02/15/2023 LIPID PANEL HDL cholesterol 45 mg/dL 40- Not Available [facility] (Lab) [address] [place], [address], 02/15/2023 13:11:34 02/16/20 23 02/15/2023 LIPID PANEL LDL cholesterol, calculated 58 mg/dL 0-130 NIH PAMELA NSUS REPOR T RECOM MENDA TIONS FOR LDL: ADULT CHILD LOW RISK <130 <110 (OPTI MAL LDL) <100 ----- BORDE RLINE : 130-1 59 ----- HIGH RISK: >160 >130 A TRIGL YCERI DE RESUL T >400 INVAL IDATE S THE CALCU LATIO N FOR LDL FRACT IONAT ION - THE LDL RESUL T WILL NOT BE REPOR SHAYLA. Not Available [facility] (Lab) [address] [place], [address], 02/15/2023 13:11:34 02/16/20 23 02/15/2023 CBC/C OMPLE TE BLD COUNT W/DIF F white blood cells 8.7 x10'3 /uL 4.2-10 .8 Not Available [facility] (Lab) [address] [place], [address], 02/15/2023 13:39:25 02/16/20 23 02/15/2023 CBC/C OMPLE TE BLD COUNT W/DIF F red blood cells 4.16 x10'6 /uL 3.80-5 .20 Not Available [facility] (Lab) [address] [place], [address], 02/15/2023 13:39:25 02/16/20 23 02/15/2023 CBC/C OMPLE TE BLD COUNT W/DIF F hemoglobin 12.9 g/dL 12.0-1 5.6 Not Available [facility] (Lab) [address] [place], [address], 02/15/2023 13:39:25 02/16/20 23 02/15/2023 CBC/C OMPLE TE BLD COUNT W/DIF F hematocrit 40.7 % 35.7-4 5.7 Not Available [facility] (Lab) [address] [place], [address], 02/15/2023 13:39:25 02/16/20 23 02/15/2023 CBC/C OMPLE TE BLD COUNT W/DIF F mean red cell volume 97.8 fL 82.0-9 9.0 Not Available [facility] (Lab) [address] [place], [address], 02/15/2023 13:39:25 02/16/20 23 02/15/2023 CBC/C OMPLE TE BLD COUNT W/DIF F mean red cell hemoglobin 31.0 pg 27.0-3 3.0 Not Available [facility] (Lab) [address] [place], [address], 02/15/2023 13:39:25 02/16/20 23 02/15/2023 CBC/C OMPLE TE BLD COUNT W/DIF F mean RBC HGB concentratio n 31.7 g/dL 31.0-3 6.0 Not Available [facility] (Lab) [address] [place], [address], 02/15/2023 13:39:25 02/16/20 23 02/15/2023 CBC/C OMPLE TE BLD COUNT W/DIF F red cell distribution width 13.2 % 11.8-1 5.5 Not Available [facility] (Lab) [address] [place], [address], 02/15/2023 13:39:25 02/16/20 23 02/15/2023 CBC/C OMPLE TE BLD COUNT W/DIF F platelets 241 x10'3 /uL 150-40 0 Not Available [facility] (Lab) [address] [place], [address], 02/15/2023 13:39:25 02/16/20 23 02/15/2023 CBC/C OMPLE TE BLD COUNT W/DIF F mean platelet volume 11.9 fL 9.0-12 .4 Not Available [facility] (Lab) [address] [place], [address], 02/15/2023 13:39:25 02/16/20 23 02/15/2023 CBC/C OMPLE TE BLD COUNT W/DIF F neutrophils 51.3 % 39.0-7 2.0 Not Available [facility] (Lab) [address] [place], [address], 02/15/2023 13:39:25 02/16/20 23 02/15/2023 CBC/C OMPLE TE BLD COUNT W/DIF F lymphocytes 38.7 % 16.0-4 7.0 Not Available [facility] (Lab) [address] [place], [address], 02/15/2023 13:39:25 02/16/20 23 02/15/2023 CBC/C OMPLE TE BLD COUNT W/DIF F monocytes 7.2 % 5.0-12 .0 Not Available [facility] (Lab) [address] [place], [address], 02/15/2023 13:39:25 02/16/20 23 02/15/2023 CBC/C OMPLE TE BLD COUNT W/DIF F eosinophils 2.0 % 1.0-7. 0 Not Available [facility] (Lab) [address] [place], [address], 02/15/2023 13:39:25 02/16/20 23 02/15/2023 CBC/C OMPLE TE BLD COUNT W/DIF F basophils 0.5 % 0.0-2. 0 Not Available [facility] (Lab) [address] [place], [address], 02/15/2023 13:39:25 02/16/20 23 02/15/2023 CBC/C OMPLE TE BLD COUNT W/DIF F immature granulocytes 0.3 % 0.00-0 .50 Not Available [facility] (Lab) [address] [place], [address], 02/15/2023 13:39:25 02/16/20 23 02/15/2023 CBC/C OMPLE TE BLD COUNT W/DIF F neutrophils, absolute count 4.46 x10'3 /uL 1.5-8. 0 Not Available [facility] (Lab) [address] [place], [address], 02/15/2023 13:39:25 02/16/20 23 02/15/2023 CBC/C OMPLE TE BLD COUNT W/DIF F lymphocytes, absolute count 3.36 x10'3 /uL 1.07-3 .43 Not Available [facility] (Lab) [address] [place], [address], 02/15/2023 13:39:25 02/16/20 23 02/15/2023 CBC/C OMPLE TE BLD COUNT W/DIF F monocytes, absolute count 0.63 x10'3 /uL 0.29-0 .99 Not Available [facility] (Lab) [address] [place], [address], 02/15/2023 13:39:25 02/16/20 23 02/15/2023 CBC/C OMPLE TE BLD COUNT W/DIF F eosinophils, absolute count 0.17 x10'3 /uL 0.02-0 .53 Not Available [facility] (Lab) [address] [place], [address], 02/15/2023 13:39:25 02/16/20 23 02/15/2023 CBC/C OMPLE TE BLD COUNT W/DIF F basophils, absolute count 0.04 x10'3 /uL 0.01-0 .08 Not Available [facility] (Lab) [address] [place], [address], 02/15/2023 13:39:25 02/16/20 23 02/15/2023 CBC/C OMPLE TE BLD COUNT W/DIF F immature granulocytes ,absolute 0.03 x10'3 /uL 0.00-0 .05 Not Available [facility] (Lab) [address] [place], [address], 02/15/2023 13:39:25 02/16/20 23 02/15/2023 CBC/C OMPLE TE BLD COUNT W/DIF F nucleated red blood cells 0.0 % -0 Not Available [facility] (Lab) [address] [place], [address], 02/15/2023 13:39:25 02/16/20 23 02/15/2023 CBC/C OMPLE TE BLD COUNT W/DIF F NRBC# 0.00 x10'3 /uL Not Available [facility] (Lab) [address] [place], [address], 02/15/2023 13:39:25 02/16/20 23 02/15/2023 HEMOG LOBIN A1C HA1C 7.4 % 4.0-6. 0 high Diabe armando Scree bogdan Crite darcie: <5.7% Consi stent with absen ce of diabe armando 5.7-6 .4% Consi stent with incre ased risk for diabe armando (pred iabet es) >OR=6 .5% Consi stent with diabe armando REFER ENCE: Diabe armando Care 2016, 39(Atkins ppl.1 ):s13 -s22 Not Available [facility] (Lab) [address] [place], [address], 02/15/2023 20:43:15 06/04/20 22 06/04/2022 MRI, cervi franck spine , w/o contr ast [facility] [address] [place] [address] [phone] Patien t Name: MARIO LINK ion #: [id number] Sex: F : 1954 4 Locati on: RAD Attend ing Physic scot: TAMEKA HUTCHINS Orderi Physic scot: TAMEKA HUTCHINS Exam Date: 06/04/20 22 8:02 AM Exam Name: MRI C SPINE WO Admitt ing Diagno sis(es ): RADIOL OGY REPORT - FINAL EXAM: MRI C SPINE WO HISTOR Y: cervic algia/ neck pain radiat es bilate ral should ers 66-yea r-old female with neck pain radiat ing to the bilate ral should ers and arms, bilate ral upper extrem ity numbne ss, cervic al spine surger y in 1999, histor y of fibrom yalgia , histor y of fall on 2021. COMPAR PEDRO: MRI of the cervic al spine dated 2020. TECHNI QUE: Multip lanar multis equenc e noncon trast MR images of the cervic al spine were perfor med. FINDIN GS: No fractu re or listhe sis in the cervic al spine. The cervic al spinal canal is congen itally narrow . No eviden ce of cerebe llar tonsil lar ectopi a. No Page 1 of 3 [facility] t Name: MARIO LINK Access ion #: [id number] Sex: F : 1954 4 Exam Date: 06/04/20 8:02 AM Exam Name: MRI C SPINE WO Admitt ing Diagno sis(es ): abnorm al signal in the cervic al spinal cord. There are stable postop erativ e change s of anteri or cervic al discec bhaskar and fusion C5-C7. There is mucosa l thicke bogdan in the spheno id sinuse s. C2-C3: No signif icant discop athy, spinal canal stenos is, or neural forami nal stenos is bilate rally. C3-C4: There is a circum ferent ial broad disc bulge. The AP dimens ion of the spinal canal measur es 9 mm. There is bilate ral uncina te proces s hypert rophy. There is mild left and no signif icant right neural forami nal stenos is. C4-C5: There is a circum ferent ial broad disc bulge with endpla te hypert rophy. The AP dimens ion of the spinal canal measur es 7.8 mm. There is mild mass effect on the anteri or margin of the cervic al spinal cord at this level. There is mild bilate ral facet hypert rophy. There is mild bilate ral neural forami nal stenos is. C5-C6: There are postop erativ e change s of ACDF. The AP dimens ion of the spinal canal measur es 9.5 mm. No signif icant neural forami nal stenos is bilate rally. C6-C7: There are postop erativ e change s of ACDF. The AP dimens ion of the spinal canal measur es 9.5 mm. No signif icant neural forami nal stenos is bilate rally. IMPRES ADELAIDA: 1. No fractu re of the cervic al spine. 2. Postop erativ e change s of ACDF C5-C7 re-michael ntifie d withou t eviden ce of hardwa re failur e or compli cation . Page 2 of 3 [facility] [place] t Name: MARIO LINK Access ion #: [id number] Sex: F : 1954 4 Exam Date: 06/04/20 8:02 AM Exam Name: MRI C SPINE WO Admitt ing Diagno sis(es ): 3. Congen ital narrow ing of the cervic al spinal canal with superi mposed spondy losis causin g mild-t o-mode rate spinal canal stenos is at C4-C5 and mild spinal canal stenos is at other levels . There is mild mass effect on the cervic al spinal cord at C4-C5, simila r to that seen on prior MRI from March 2021. Recomm end spinal surger y consul tation if not alread y obtain ed. 4. No signif icant neural forami nal stenos is is identi fied at any level in the cervic al spine. Create d and electr onical ly signed by: Beny mendiola MD Signed Date: 06/04/20 3:31 PM (CT) Dictat ed by: Beny mendiola MD (CT) (CT) Page 3 of 3 [id number] [facility] (Imaging) [address] [place], [address], 12/30/2022 03:09:05 02/26/20 23 02/25/2023 CT, abdom en + pelvi s, w/ contr ast [facility] [address] [facility] [place] [address] [phone] Patien t Name: LINK, MARIO SHELLY Access ion #: [id number] Sex: F : 1954 1 Locati on: RAD Attend ing Physic scot: TAMEKA HUTCHINS Orderi ng Physic scot: TAMEKA HUTCHINS Exam Date: 023 8:45 AM Exam Name: CT ABDOME N PELVIS W Admitt ing Diagno sis(es ): RADIOL OGY REPORT - FINAL EXAM: CT ABDOME N PELVIS W HISTOR Y: 67-yea r-old female with lower abdomi nal pain, histor y of coliti s; prior cholec ystect sin and hyster ectomy . COMPAR PEDRO: None availa ble. TECHNI QUE: Helica l CT images of the abdome n and pelvis were perfor med with 30 ml Gastro view oral contra st and 100 mL Isovue [address] Sagitt al and diez l reform atted images were obtain ed. This CT exam was perfor med using 1 or more of the follow ing dose reduct ion techni ques: Automa shayla exposu re contro l, adjust ment of the mA and/or kv accord ing to patien t size, or the use of iterat wan recons tructi on techni ques. FINDIN GS: Page 1 of 2 [facility] Name: MARIO LINK SHELLY Access ion #: [id number] Sex: F : 1954 1 Exam Date: 023 8:45 AM Exam Name: CT ABDOME N PELVIS W Admitt ing Diagno sis(es ): CT abdome n: There is centri lobula r emphys leonard in the lung bases. The gallbl adder is surgic ally absent . The liver, spleen , gallbl adder, pancre as, kidney s, and adrena l glands are unrema rkable . No abdomi nal aortic aneury sm or dissec tion. There are athero sclero tic calcif icatio ns of the abdomi nal aorta and major branch es. CT pelvis : No abnorm al bowel dilata tion, free air, free fluid, or suspic ious adenop athy. There is fecal retent ion in the mid to distal colon. The proxim al colon is decomp ressed the append ix is not visual ized, and there are no second naveen signs of acute append icitis . The urinar y bladde r is unrema rkable . The uterus is surgic ally absent . There are mild degene rative change s of the hips, sacroi liac joints , and lumbar spine. IMPRES ADELAIDA: 1. Fecal retent ion in the mid to distal colon sugges tive of consti pation . 2. Postop erativ e change s of cholec ystect sin, hyster ectomy , and possib ly also append ectomy . 3. Emphys leonard. Create d and electr onical ly signed by: Beny mendiola MD Signed Date: 11:35 AM (CT) Dictat ed by: Beny mendiola MD DD: 11:35 AM (CT) DT: 11:35 AM (CT) Page 2 of [email or web address] [place] [address] (Imaging) [address] [place], [address], 06/23/2023 10:29:39 03/06/20 24 03/06/2024 US, retro perit oneum [facility] [address] [address] Patien t Name: MARIO LINK Access ion #: [id number] Sex: F : 1954 7 Dictat ed By: Aj Baig Attend ing Physic scot: TAMEKA HUTCHINS Orderi Physic scot: TAMEKA HUTCHINS Exam Date: 2023 07:46 AM Exam Name: US ABDOME N RETROP ER Admitt ing Diagno sis(es ): INDICA TION: Diabet es. TECHNI QUE: Multip le real-t warren sonogr aphic images of the kidney s and bladde r were obtain ed. COMPAR PEDRO: CT dated . FINDIN GS: The right kidney measur es 9.1 cm in length . The right renal echoge nicity , contou r and cortic al thickn ess are within normal limits . Mild right hydron ephros is. The left kidney measur es 9.1 cm in length . The left renal echoge nicity , contou r, and cortic al thickn ess are within normal limits . No hydron ephros is or large masses /calcu li are seen. No large intral uminal masses are seen in the bladde r. IMPRES ADELAIDA: Mild right hydron ephros is. Electr onical ly Signed by: Aj Baig at 2023 10:14: 50 AM Page 1 [email or web address] [facility] (Imaging) [address] [place], [address], 05/16/2024 09:00:12 Result Notes Documentation Provider Name and Address Organization Details Recorded Time Mri, Cervical Spine, W/o Contrast : [facility] [address] [place] [address] Patient Name: NEELAM LINK Sex: F : 1955 Location: [facility] Attending Physician: NATASHA HUTCHINS Ordering Physician: NATASHA HUTCHINS Exam Date: 06/04/2022 8:02 AM Exam Name: MRI C SPINE WO Admitting Diagnosis(es): RADIOLOGY REPORT - FINAL EXAM: MRI C SPINE WO HISTORY: cervicalgia/neck pain radiates bilateral shoulders 66-year-old female with neck pain radiating to the bilateral shoulders and arms, bilateral upper extremity numbness, cervical spine surgery in 1999, history of fibromyalgia, history of fall on 01/13/2022. COMPARISON: MRI of the cervical spine dated 03/19/2021. TECHNIQUE: Multiplanar multisequence noncontrast MR images of the cervical spine were performed. FINDINGS: No fracture or listhesis in the cervical spine. The cervical spinal canal is congenitally narrow. No evidence of cerebellar tonsillar ectopia. No Page 1 of 3 [facility] Patient Name: NEELAM LINK Sex: F : 1955 Exam Date: 06/04/2022 8:02 AM Exam Name: MRI C SPINE WO Admitting Diagnosis(es): abnormal signal in the cervical spinal cord. There are stable postoperative changes of anterior cervical discectomy and fusion C5-C7. There is mucosal thickening in the sphenoid sinuses. C2-C3: No significant discopathy, spinal canal stenosis, or neural foraminal stenosis bilaterally. C3-C4: There is a circumferential broad disc bulge. The AP dimension of the spinal canal measures 9 mm. There is bilateral uncinate process hypertrophy. There is mild left and no significant right neural foraminal stenosis. C4-C5: There is a circumferential broad disc bulge with endplate hypertrophy. The AP dimension of the spinal canal measures 7.8 mm. There is mild mass effect on the anterior margin of the cervical spinal cord at this level. There is mild bilateral facet hypertrophy. There is mild bilateral neural foraminal stenosis. C5-C6: There are postoperative changes of ACDF. The AP dimension of the spinal canal measures 9.5 mm. No significant neural foraminal stenosis bilaterally. C6-C7: There are postoperative changes of ACDF. The AP dimension of the spinal canal measures 9.5 mm. No significant neural foraminal stenosis bilaterally. IMPRESSION: 1. No fracture of the cervical spine. 2. Postoperative changes of ACDF C5-C7 re-identified without evidence of hardware failure or complication. Page 2 of 3 [facility] Patient Name: NEELAM LINK Sex: F : 1955 Exam Date: 06/04/2022 8:02 AM Exam Name: MRI C SPINE WO Admitting Diagnosis(es): 3. 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 There is mild mass effect on the cervical spinal cord at C4-C5, similar to that seen on prior MRI from March 2021. Recommend spinal surgery consultation if not already obtained. 4. No significant neural foraminal stenosis is identified at any level in the cervical spine. Created and electronically signed by: Beny Handy MD Signed Date: 06/04/2022 3:31 PM (CT) Dictated by: Beny Handy MD (CT) (CT) Page 3 of 3 Not Available [facility] 12/30/2022 03:09:07 Ct, Abdomen + Pelvis, W/ Contrast : [facility] [address] [place] [address] Patient Name: NEELAM LINK Sex: F : 1955 Location: [facility] Attending Physician: NATASHA HUTCHINS Ordering Physician: NATASHA HUTCHINS Exam Date: 02/25/2023 8:45 AM Exam Name: CT ABDOMEN PELVIS W Admitting Diagnosis(es): RADIOLOGY REPORT - FINAL EXAM: CT ABDOMEN PELVIS W HISTORY: 67-year-old female with lower abdominal pain, history of colitis; prior cholecystectomy and hysterectomy. COMPARISON: None available. TECHNIQUE: Helical CT images of the abdomen and pelvis were performed with 30 ml Gastroview oral contrast and 100 mL Isovue 300 IV contrast. Sagittal and coronal reformatted images were obtained. This CT exam was performed using 1 or more of the following dose reduction techniques: Automated exposure control, adjustment of the mA and/or kv according to patient size, or the use of iterative reconstruction techniques. FINDINGS: Page 1 of 2 [facility] Patient Name: NEELAM LINK Sex: F : 1955 Exam Date: 02/25/2023 8:45 AM Exam Name: CT ABDOMEN PELVIS W Admitting Diagnosis(es): CT abdomen: There is centrilobular emphysema in the lung bases. The gallbladder is surgically absent. The liver, spleen, gallbladder, pancreas, kidneys, and adrenal glands are unremarkable. No abdominal aortic aneurysm or dissection. There are atherosclerotic calcifications of the abdominal aorta and major branches. CT pelvis: No abnormal bowel dilatation, free air, free fluid, or suspicious adenopathy. There is fecal retention in the mid to distal colon. The proximal colon is decompressed the appendix is not visualized, and there are no secondary signs of acute appendicitis. The urinary bladder is unremarkable. The uterus is surgically absent. There are mild degenerative changes of the hips, sacroiliac joints, and lumbar spine. IMPRESSION: 1. Fecal retention in the mid to distal colon suggestive of constipation. 2. Postoperative changes of cholecystectomy, hysterectomy, and possibly also appendectomy. 3. Emphysema. Created and electronically signed by: Beny Handy MD Signed Date: 02/25/2023 11:35 AM (CT) Dictated by: Beny Handy MD (CT) (CT) Page 2 of 2 CHERISE Chery, [place] - [facility] 06/23/2023 10:29:39 Problems Name Problem SNOMED Code Status Onset Date Resolution Date Notes Provider Name and Address Organization Details Recorded Time Open wound of finger 047233228 Completed Not Available [facility] 3 02:58:10 Diarrheal disorder 606143167 Completed Not Available [facility] 3 02:58:10 Gastroesop hageal reflux disease 989079993 Active Not Available [facility] 3 05:53:35 Pure hyperchole sterolemia 609960538 Active Not Available [facility] 3 05:53:35 Eruption 490971933 Completed Not Available [facility] 3 02:58:10 Orthostati c hypotensio n 28403398 Completed Not Available [facility] 3 02:58:10 Type 2 diabetes mellitus without complicati on 244337427 Active Not Available [facility] 3 05:53:35 Mononeurit is 16877525 Active Not Available [facility] 3 05:53:35 Vitamin D deficiency 94289050 Active Not Available [facility] 3 05:53:35 Asthmatic bronchitis 918200551 Active Not Available [facility] 3 05:53:35 Uncontroll ed type 2 diabetes mellitus 180663330 Active Not Available [facility] 3 05:53:35 Foot pain 61926437 Completed Not Available [facility] 3 02:58:10 Supraventr icular tachycardi a 9124576 Active Not Available [facility] 3 05:53:35 Rhinitis 28318724 Completed Not Available [facility] 3 02:58:11 Pain in limb 80690961 Completed Not Available [facility] 3 02:58:11 Skin lesion 12899433 Completed Not Available [facility] 3 02:58:11 Neuropathy due to diabetes mellitus 668105026 Active 2020 Not Available [facility] 3 05:53:35 Neck pain 15942518 Active 2021 Not Available [facility] 3 05:53:35 Abdominal pain 24572037 Active 2022 Not Available [facility] 3 05:53:35 Problem Notes None recorded. Procedures Surgical History Date Name Laterality Status Provider Name and Address Organization Details Recorded Time 021 endovenous laser ablation of varicose vein completed Not Available [facility] 12/30/2022 02:51:44 019 Most Recent Bone Density completed Not Available [facility] 12/30/2022 02:51:40 017 Orthopedic Surgery completed Not Available [facility] 12/30/2022 02:51:44 017 Date of Last Colonoscopy completed Not Available [facility] 12/30/2022 02:51:40 Wrist arthroscopy/surgery completed Not Available [facility] 12/30/2022 02:51:44 Breast Surgery completed Not Available [facility] 12/30/2022 02:51:44 MANAGER SCHEDULING Surgery completed Not Available [facility] 12/30/2022 02:51:44 Dilation and curettage completed Not Available [facility] 12/30/2022 02:51:44 Cataract Surgery completed Not Available [facility] 12/30/2022 02:51:44 Breast Surgery completed Not Available [facility] 12/30/2022 02:51:44 Eye Surgery completed Not Available [facility] 12/30/2022 02:51:44 Tonsillectomy completed Not Available [facility] 12/30/2022 02:51:44 other completed Not Available [facility] 12/30/2022 02:51:44 Hysterectomy, Partial completed Not Available [facility] 12/30/2022 02:51:44 Breast Biopsy completed Not Available [facility] 12/30/2022 02:51:44 MANAGER SCHEDULING Surgery completed Not Available [facility] 12/30/2022 02:51:44 MANAGER SCHEDULING Surgery completed Not Available [facility] 12/30/2022 02:51:44 Breast Surgery completed Not Available [facility] 12/30/2022 02:51:44 Cholecystectomy completed Not Available [facility] 12/30/2022 02:51:44 other completed Not Available [facility] 12/30/2022 02:51:44 other completed Not Available [facility] 12/30/2022 02:51:44 Breast Surgery completed Not Available [facility] 12/30/2022 02:51:44 Gastrointestinal Surgery completed Not Available [facility] 12/30/2022 02:51:44 Breast Surgery completed Not Available [facility] 12/30/2022 02:51:44 ENT Surgery completed Not Available [facility] 12/30/2022 02:51:44 Carpal tunnel completed Not Available [facility] 12/30/2022 02:51:44 Biopsy completed Not Available [facility] 12/30/2022 02:51:44 MANAGER SCHEDULING Surgery completed Not Available [facility] 12/30/2022 02:51:44 Breast Biopsy completed Not Available [facility] 12/30/2022 02:51:44 Orthopedic Surgery completed Not Available [facility] 12/30/2022 02:51:44 Breast Biopsy completed Not Available [facility] 12/30/2022 02:51:44 Carpal tunnel completed Not Available [facility] 12/30/2022 02:51:44 Breast Surgery completed Not Available [facility] 12/30/2022 02:51:44 Breast Surgery completed Not Available [facility] 12/30/2022 02:51:44 Breast Surgery completed Not Available [facility] 12/30/2022 02:51:44 excision of benign lesion of scalp and neck completed Not Available [facility] 12/30/2022 02:51:44 Breast Surgery completed Not Available [facility] 12/30/2022 02:51:44 MANAGER SCHEDULING Surgery completed Not Available [facility] 12/30/2022 02:51:44 Rotator cuff surgery completed Not Available [facility] 12/30/2022 02:51:44 Knee arthroscopy/surgery completed Not Available [facility] 12/30/2022 02:51:44 other completed Not Available [facility] 12/30/2022 02:51:44 Breast Biopsy completed Not Available [facility] 12/30/2022 02:51:44 open reduction of fracture of tibia completed Not Available [facility] 12/30/2022 02:51:44 closed reduction of fracture of wrist completed Not Available [facility] 12/30/2022 02:51:44 Imaging Results None recorded. Procedure Notes None recorded. Medical Equipment None Reported. Allergies Allergen ID Allergen Name Allergen Category Reaction Reaction Severity Criticality Documentation Date Start Date Code Code System Note Provider Name and Address Organization Details Recorded Time 5231 Ultram medicatio n nausea Not available Not available 12/30/2022 51893 6 RxNorm Not Available [facility] 3 03:08:30 5232 Medicinal product containin g tetracycl ine structure and acting as antibacte rial agent (product) medicatio n nausea Not available Not available 12/30/2022 29130 1004 SNOMED Not Available [facility] 3 03:08:30 5233 acetamino phen / oxycodone medicatio n other Not available Not available 12/30/2022 38044 3 RxNorm menta l vazquez es Not Available [facility] 3 03:08:30 5234 bacitraci n / neomycin / polymyxin B medicatio n Not available Not available Not available 12/30/2022 22333 9 RxNorm tissu e sloug elsi Not Available [facility] 3 03:08:30 5235 indometha ofelia medicatio n nausea Not available Not available 12/30/2022 5781 RxNorm Not Available [facility] 3 03:08:31 5236 Indocin medicatio n nausea Not available Not available 12/30/2022 61042 5 RxNorm Not Available [facility] 3 03:08:31 5237 hydrocodo ne Not available nausea Not available Not available 12/30/2022 5489 RxNorm Not Available [facility] 3 03:08:31 5238 Floxin medicatio n nausea Not available Not available 12/30/2022 09238 8 RxNorm Not Available [facility] 3 03:08:31 5239 fentanyl medicatio n vomiting Not available Not available 12/30/2022 4337 RxNorm Not Available [facility] 3 03:08:31 5240 Demerol medicatio n nausea Not available Not available 12/30/2022 45339 1 RxNorm Not Available [facility] 3 03:08:31 5241 Substance with morphinan structure and opioid receptor agonist mechanism of action (substanc e) medicatio n Not available Not available Not available 12/30/2022 39380 9000 SNOMED Not Available [facility] 3 03:08:31 5242 codeine medicatio n Not available Not available Not available 12/30/2022 2670 RxNorm Not Available [facility] 3 03:08:31 Medications Name Sig Start Date Stop Date Status Note LastModified by Organization Details LastModified Time cyclobenz aprine 10 mg tablet TAKE 1 TABLET BY MOUTH THREE TIMES A DAY NEEDED active Not Available Not Available No t Available amoxicill in 500 mg capsule Take 1 capsule 3 times a day by oral route for 7 days. active Not Available Not Available No t Available metformin 500 mg tablet TAKE 2 TABLETS BY MOUTH TWICE A DAY active Not Available Not Available No t Available atorvasta tin 20 mg tablet TAKE 1 TABLET BY MOUTH EVERY DAY active Not Available Not Available No t Available Ceftin 500 mg tablet Take 1 tablet every 12 hours by oral route for 7 days. 08/07 completed Not Available Not Available Not Available trazodone 50 mg tablet 09/04 completed Not Available Not Available Not Available Medrol (Michael) 4 mg tablets in a dose pack take decreasi ng doses starting with 6 first day active Not Available Not Available No t Available prednison e 20 mg tablet active Not Available Not Available Not Available acetamino phen 300 mg-codein e 30 mg tablet TAKE 1 TABLET BY MOUTH 3 TIMES A DAY NEEDED *08/28* active Not Available Not Available No t Available sulfameth oxazole 800 mg-trimet hoprim 160 mg tablet TAKE 1 TABLET BY MOUTH TWICE A DAY active Not Available Not Available No t Available omeprazol e 40 mg capsule,d elayed release TAKE 1 CAPSULE BY MOUTH EVERY DAY active Not Available Not Available No t Available tramadol 50 mg tablet TAKE 1 TABLET BY MOUTH EVERY 6 HOURS NEEDED FOR PAIN 06/01 completed stopped took after surgery only. Not Available Not Available Not Available glimepiri de 1 mg tablet TAKE 0.5 TABLET BY MOUTH EVERY DAY active Not Available Not Available No t Available amitripty line 25 mg tablet TAKE 1 TABLET BY MOUTH AT BEDTIME. 12/22 completed stopped this on her own. Not Available Not Available Not Available dicyclomi ne 20 mg tablet TAKE 1 TABLET BY MOUTH THREE TIMES A DAY NEEDED active Not Available Not Available No t Available GameCrushToRentMama Ultra Test strips USE TO TEST ONCE DAILY 2023 active Not Available Not Available Not Avai lable cephalexi n 500 mg capsule TAKE 1 CAPSULE BY MOUTH EVERY 12 HOURS FOR 10 DAYS. 03/06 completed Not Available Not Available Not Available pantopraz ole 40 mg tablet,de layed release Take 1 tablet every day by oral route. active Not Available Not Available No t Available nystatin 100,000 unit/gram topical cream APPLY TO RASH DAILY FOR 10 DAYS active Not Available Not Available No t Available halobetas ol propionat e 0.05 % topical ointment 04/03 completed Not Available Not Available Not Available lansopraz ole 30 mg capsule,d elayed release Take 1 capsule every day by oral route. 08/13 completed Not Available Not Available Not Available monteluka st 10 mg tablet TAKE 1 TABLET BY MOUTH AT BEDTIME active Not Available Not Available No t Available zaleplon 10 mg capsule Take 1 capsule every day by oral route at dinner. 02/11 completed pt is no longer on zalepolo n Not Available Not Available Not Available zolpidem 10 mg tablet Take 1 tablet as needed by oral route at bedtime. 12/22 completed stopped this on her own. Not Available Not Available Not Available Lomotil 2.5 mg-0.025 mg tablet Take 1 tablet 3 times a day by oral route. active Not Available Not Available No t Available Vitamin D2 1,250 mcg (50,000 unit) capsule Take 1 capsule every week by oral route. 04/16 completed Not Available Not Available Not Available oxybutyni n chloride 5 mg tablet TAKE 1 TABLET BY MOUTH THREE TIMES A DAY NEEDED 2020 active Not Available Not Available Not Avai lable ondansetr on 4 mg disintegr ating tablet DISSOLVE 1 TABLET ON TONGUE EVERY 8 HOURS NEEDED. 09/19 completed Not Available Not Available Not Available cefdinir 300 mg capsule TAKE 1 CAPSULE BY MOUTH TWICE A DAY FOR 10 DAYS active Not Available Not Available No t Available lisinopri l 2.5 mg tablet TAKE 1 TABLET BY MOUTH EVERY DAY 06/21 completed Not Available Not Available Not Available diazepam 5 mg tablet TAKE 1 TABLET BY MOUTH 30 MINUTES BEFORE PROCEDUR E 09/17 completed Not Available Not Available Not Available amoxicill in 875 mg-potass ium clavulana te 125 mg tablet TAKE 1 TABLET BY MOUTH TWICE A DAY FOR 10 DAYS 01/27 completed Not Available Not Available Not Available Vitamin D3 25 mcg (1,000 unit) capsule Take by oral route. 05/22 completed Not Available Not Available Not Available Premarin 0.625 mg tablet Take 1 tablet every day by oral route. 08/13 completed Not Available Not Available Not Available duloxetin e 30 mg capsule,d elayed release 12/07 completed Not Available Not Available Not Available OneTouch Ultra2 Meter kit USE TO TEST TWICE A DAY active Not Available Not Available No t Available HyoMax-SR 0.375 mg tablet,ex tended release Take 1 tablet every 12 hours by oral route. 12/16 completed Not Available Not Available Not Available GaviLyte- G 236 gram-22.7 4 gram-6.74 gram-5.86 gram oral solution 04/16 completed Not Available Not Available Not Available Narcan 4 mg/actuat ion nasal spray active Not Available Not Available Not Available OneTouch Ultra Blue Test Strip USE TO TEST ONCE DAILY active Not Available Not Available No t Available OneTouch Delica Plus Lancet 33 gauge USE TO TEST BLOOD SUGAR ONCE A DAY active Not Available Not Available No t Available Vitals Date Recorded Body height Body mass index (BMI) Body weight Body temperature Heart rate Systolic And Diastolic Provider Name and Address Organization Details Last Updated DateTime 3 154.94 cm 25.1 kg/m2 98968.7 9 g 97.3 [degF] 94 /min 110/60 mm[Hg] CHERISE Chery [place] - [facility] 3 09:52:57 Date Recorded Body mass index (BMI) Body height Heart rate Body temperature Body weight Systolic And Diastolic Provider Name and Address Organization Details Last Updated DateTime 2 24.8 kg/m2 154.94 cm 98 /min 97 [degF] 67234.6 g 80/60 mm[Hg] Not Available [facility] 3 02:53:46 Date Recorded Body height Body mass index (BMI) Body weight Body temperature Heart rate Systolic And Diastolic Provider Name and Address Organization Details Last Updated DateTime 3 154.94 cm 25.5 kg/m2 63038.9 7 g 97.6 [degF] 100 /min 108/70 mm[Hg] Jackelin camacho RN [facility] [employer] [facility] 3 09:54:17 Date Recorded Body height Body mass index (BMI) Body weight Body temperature Heart rate Systolic And Diastolic Provider Name and Address Organization Details Last Updated DateTime 3 154.94 cm 25.9 kg/m2 43504.1 5 g 97.3 [degF] 86 /min 122/70 mm[Hg] CHERISE Chery [facility] [employer] [facility] 3 10:46:12 Date Recorded Body mass index (BMI) Body height Heart rate Body temperature Body weight Systolic And Diastolic Provider Name and Address Organization Details Last Updated DateTime 2 25.5 kg/m2 154.94 cm 95 /min 98.7 [degF] 45065.9 7 g 82/66 mm[Hg] Not Available [facility] 3 02:53:46 Social History Question Answer Notes LastModified by Organizat ion Details LastModified Time Tobacco Smoking Status Current Every Day Smoker Not Available [facility] 12/30/2022 02:40:14 Do You Have An Advance Directive? No [id number] Information not available 12/30/2022 Are You Blind Or Do You Have Difficulty Seeing? Yes Wears Glasses MIGRATION.97152 [id number] Information not available 12/30/2022 What Is Your Level Of Caffeine Consumption? Occasional MIGRATION.58192 11467 Information not available 12/30/2022 How Much Tobacco Do You Chew? None MIGRATION.95937 61452 Information not available 12/30/2022 In The 14 Days Before Symptom Onset, Have You Had Close Contact With A Laboratory-confir med COVID-19 While That Case Was Ill? No MIGRATION.00634 14373 Information not available 12/30/2022 In The 14 Days Before Symptom Onset, Have You Had Close Contact With A Person Who Is Under Investigation For COVID-19 While That Person Was Ill? No MIGRATION.03491 97745 Information not available 12/30/2022 Are You Deaf Or Do You Have Serious Difficulty Hearing? No MIGRATION.45749 98294 Information not available 12/30/2022 What Type Of Diet Are You Following? REGULAR MIGRATION.97343 18935 Information not available 12/30/2022 Which Illicit Or Recreational Drugs Have You Used? None MIGRATION.23911 56755 Information not available 12/30/2022 What Is The Highest Grade Or Level Of School You Have Completed Or The Highest Degree You Have Received? [id number] MIGRATION.10487 60144 Information not available 12/30/2022 Have There Been Any Changes To Your Family Or Social Situation? No MIGRATION.00254 33476 Information not available 12/30/2022 What Is The Fluoride Status Of Your Home? Unknown MIGRATION.98471 33711 Information not available 12/30/2022 Do You Use Insect Repellent Routinely? No MIGRATION.69015 63647 Information not available 12/30/2022 Do You Have A Medical Power Of Cna Hospice? No MIGRATION.28262 67486 Information not available 12/30/2022 What Was The Date Of Your Most Recent Tobacco Screening? 10/04/2023 [id number] Information not available 10/04/2023 What Is Your Relationship Status? MIGRATION.29777 61979 Information not available 12/30/2022 Do You Use Your Seat Belt Or Car Seat Routinely? Yes MIGRATION.12460 36912 Information not available 12/30/2022 Do You Have Smoke And Carbon Monoxide Detectors In Your Home? Yes MIGRATION.95751 39536 Information not available 12/30/2022 Are You Passively Exposed To Smoke? Yes MIGRATION.33321 19227 Information not available 12/30/2022 Are There Any Smokers In Your House? Yes MIGRATION.00535 07136 Information not available 12/30/2022 How Much Tobacco Do You Smoke? 0.5 PPD MIGRATION.40513 73198 Information not available 12/30/2022 What Types Of Sporting Activities Do You Participate In? None MIGRATION.43590 61403 Information not available 12/30/2022 Do You Use Sunscreen Routinely? Yes MIGRATION.94308 56590 Information not available 12/30/2022 Has Tobacco Cessation Counseling Been Provided? No MIGRATION.87785 48993 Information not available 12/30/2022 Have You Recently Traveled Abroad? No MIGRATION.85727 50964 Information not available 12/30/2022 Do You Have Difficulty Walking Or Climbing Stairs? No MIGRATION.08540 57323 Information not available 12/30/2022 Do You Have Any Dietary Restrictions? No MIGRATION.64990 79546 Information not available 12/30/2022 Sex: Female Functional Status Question Answer Note LastModified by [employer] Details LastModified Time Do you use any illicit or recreational drugs? No MIGRATION.611987 0802 Information not available 12/30/2022 Do you or have you ever used any other forms of tobacco or nicotine? No MIGRATION.699474 3659 Information not available 12/30/2022 What is your level of alcohol consumption? None MIGRATION.058236 8366 Information not available 12/30/2022 Do you or have you ever used smokeless tobacco? Never used smokeless tobacco MIGRATION.825463 8423 Information not available 12/30/2022 Do you have transportation difficulties? No MIGRATION.272657 7050 Information not available 12/30/2022 Are you able to walk? YESWOREST MIGRATION.145710 4091 Information not available 12/30/2022 Do you have difficulty doing errands alone? No MIGRATION.377611 4887 Information not available 12/30/2022 Are you able to care for yourself? Yes MIGRATION.440837 0789 Information not available 12/30/2022 What is your occupation? retired MIGRATION.514682 4099 Information not available 12/30/2022 Do you have difficulty dressing or bathing? No MIGRATION.748989 9737 Information not available 12/30/2022 Do you or have you ever used e-cigarettes or vape? Never used electronic cigarettes MIGRATION.021921 6020 Information not available 12/30/2022 What is your exercise level? Occasional MIGRATION.563811 5834 Information not available 12/30/2022 Mental Status Question Answer Note LastModified by [employer] ion Details LastModified Time Do you feel stressed (tense, restless, nervous, or anxious, or unable to sleep at night)? NL3776-5 MIGRATION.[id number] 26 Information not available 12/30/2022 Do you have difficulty concentrating, remembering or making decisions? No MIGRATION.62240646 26 Information not available 12/30/2022 Family History Relationship Description Onset Age of this Age Resolved Age Notes LastModified by Organization Details LastModified Time Father Diabetes mellitus MIGRATION.465 [id number] Not available 12/30/2022 02:51:46 Father Atherosclero sis MIGRATION.068 [id number] Not available 12/30/2022 02:51:46 Father Malignant tumor of colon MIGRATION.299 [id number] Not available 12/30/2022 02:51:46 Mother Hypertensive disorder MIGRATION.221 [id number] Not available 12/30/2022 02:51:46 Mother Renal failure syndrome MIGRATION.134 [id number] Not available 12/30/2022 02:51:46 Sister Hypertensive disorder MIGRATION.268 [id number] Not available 12/30/2022 02:51:46 Sister Diabetes mellitus MIGRATION.531 [id number] Not available 12/30/2022 02:51:46 Sister Diabetes mellitus MIGRATION.882 [id number] Not available 12/30/2022 02:51:46 Brother Hyperlipidem ia MIGRATION.651 [id number] Not available 12/30/2022 02:51:46 Medical History Condition Response NERVE DISEASE Y BLINDNESS N RHEUMATIC FEVER N KIDNEY STONES N BLADDER PROBLEMS N MRSA N OTHER # 1 N POLIO N LUNG DISEASE/DISORDER N COPD N RADIATION / CHEMOTHERAPY N Other # 2 N BLOOD DISEASES N SURGERY N EAR OR HEARING PROBLEMS N MUMPS N DEPRESSION (INCLUDING POST ) N BOWEL PROBLEMS Y STROKE/TIA N ULCERS N BENIGN PROSTATIC HYPERPLASIA N MEASLES N MYOCARDIAL INFARCTION N OBESITY N GERD/NAUSEA Y ANEURYSM N URINARY/BLADDER/KIDNEY PROBLEMS Y CORONARY ARTERY DISEASE (CAD) N ADDICTION CONCERNS N Impotence N ENDOMETRIOSIS N USE OF BLOOD THINNERS N SKIN PROBLEMS N GASTROINTESTINAL DISORDER N PERIPHERAL VASCULAR DISEASE N MUSCLE,JOINT OR BONE PROBLEMS N GASTROINTESTINAL BLEEDING N BLOOD CLOTS N ASTHMA N CATARACTS N ERECTILE DYSFUNCTION N VARICOSITIES N GI PROBLEMS N Low Testosterone N INFERTILITY N AIDS/HIV N CHEMOTHERAPY / RADIATION N LIVER DISEASE N MALE HYPOGONADISM N HYPERTENSION N Deficiency Y ANXIETY DISORDER N BLOOD TRANSFUSION N ANEMIA/BLOOD DISORDER N CHRONIC EAR INFECTIONS N BRONCHITIS Y TUBERCULOSIS N GLAUCOMA N FOOT PROBLEM N DIVERTICULITIS N SLEEP APNEA N CHICKENPOX N INFECTIOUS DISEASE N PROSTATE N HEART ARRHYTHMIA Y INSOMNIA N HIGH CHOLESTEROL / HYPERLIPIDEMIA Y HYPERTHYROIDISM N EYE PROBLEMS N NEUROLOGICAL PROBLEMS N EDEMA N CHRONIC PAIN SYNDROME N HYPOTHYROIDISM N CONSTIPATION N CAROTID BLOCKAGE N BACK / NECK PROBLEMS N HAVE YOU BEEN HOSPITALIZED OR SEEN IN [facility] ER IN THE PAST YEAR ? N ATHEROSCLEROSIS N BREAST PROBLEMS N DIALYSIS N ECZEMA N OSTEOPOROSIS N ARTHRITIS N APPENDICITIS N DIABETES, TYPE Y BAD TEETH N ENT N HEARTBURN / REFLUX N AUTISM SPECTRUM DISORDER (ASD) N HEPATITIS / LIVER DISEASE N GOUT N SLEEP DISORDER N ALZHEIMER'S DISEASE N Brain Problems N HERPES N DEMENTIA N SEIZURES/EPILEPSY N HEADACHES/MIGRAINES N VASCULAR DISEASE N PACEMAKER N Blood Disorder N DIZZINESS N KIDNEY DISEASE Y HEART DISEASE/HEART PROBLEMS N MULTIPLE SCLEROSIS N CARDIAC ARRHYTHMIA N CANCER: SPECIFY N Gall Stones N ATRIAL FIBRILLATION N PULMONARY EMBOLISM N AUTOIMMUNE DISEASE N Gynecological History Statement/Question Response Abnormal Pap N Date of Last Pap Date of Last Mammogram 04/09/2021 Current Control Method Hysterectom y Date of Last Colonoscopy 03/23/2017 Most Recent Bone Density 06/14/2019 Obstetrics History GPAL:G 2 P 2 0 0 2 Type Value Full Term 2 Living 2 Total 2 Immunizations Vaccine Type Date Status Note Provider Nam e and Address Organization Details Recorded Time COVID-19, mRNA, LNP-S, PF, 100 mcg/0.5mL dose or 50 mcg/0.25mL dose 1 completed Not Available [facility] 05/11/2023 05:53:36 COVID-19, mRNA, LNP-S, PF, 100 mcg/0.5mL dose or 50 mcg/0.25mL dose 1 completed Not Available [facility] 05/11/2023 05:53:36 COVID-19, mRNA, LNP-S, PF, 100 mcg/0.5mL dose or 50 mcg/0.25mL dose 1 completed Not Available [facility] 05/11/2023 05:53:36 tetanus toxoid, adsorbed 3 completed Not Available [facility] 05/11/2023 05:53:36 Influenza, high-dose, quadrivalent, PF 2 completed Not Available [facility] 05/11/2023 05:53:36 Influenza, high-dose, quadrivalent, PF 1 completed Not Available [facility] 05/11/2023 05:53:36 Influenza, high-dose, quadrivalent, PF 0 completed Not Available [facility] 05/11/2023 05:53:36 Pneumococcal conjugate PCV 13 9 completed Not Available [facility] 05/11/2023 05:53:36 Influenza, high-dose, trivalent, PF 9 completed Not Available [facility] 05/11/2023 05:53:36 Influenza, split virus, quadrivalent, PF 8 completed Not Available [facility] 05/11/2023 05:53:36 pneumococcal polysaccharide PPV23 5 completed Not Available [facility] 05/11/2023 05:53:36 Influenza, split virus, quadrivalent, PF 7 completed Not Available [facility] 05/11/2023 05:53:36 Influenza, high-dose, quadrivalent, PF 3 completed Natasha Hutchins MD [address] [place] [address], [place] [address], [place], [address], [facility] [employer] [facility] 10/09/2023 12:10:02 Past Encounters Encounter ID Performer Location Encounter Start Date Encounter Closed Date Diagnosis/Indication Diagnosis SNOMED-CT Code Diagnosis ICD10 Code Diagnosis Note [id number] Natasha Hutchins MD [facility] Internal Med [facility] 2043 [facility], [address] [address] 01/23/2021 00:00:00 01/25/2021 16:45:48 [id number] [facility] ic_Gateway _ATHENA_M IGRATION_ DEFAULT_1 _1 , 04/03/2021 00:00:00 04/03/2021 15:30:00 [id number] Jose kidd MD [facility] General Surgery 2043 [facility], [facility] [address] [place] [address] 04/15/2021 00:00:00 04/17/2021 13:26:33 [id number] Jose kidd MD [facility] General Surgery 2043 [facility], [facility] [address] [place] [address] 05/01/2021 00:00:00 05/01/2021 14:12:33 [id number] Natasha Hutchins MD [facility] Internal Med Mi[facility] 15 2043 [facility] [address] [address] 05/22/2021 00:00:00 05/24/2021 21:32:21 [id number] Jose kidd MD [facility] General Surgery 2043 [facility] [address] [address] 05/27/2021 00:00:00 05/27/2021 14:57:19 [id number] Jose kidd MD [facility] General Surgery [address] [facility] [address] [address] 07/15/2021 00:00:00 07/15/2021 16:45:54 [id number] Jose kidd MD [facility] General Surgery [address] [facility] [address] [address] 07/22/2021 00:00:00 07/22/2021 13:34:07 [id number] Natasha Hutchins MD [facility] Internal Med [facility] [address] [facility] [address] [address] 09/17/2021 00:00:00 09/26/2021 16:29:24 [id number] Natasha Hutchins MD [facility] Internal Med [facility] 2043 [facility] [address] [address] 02/20/2022 00:00:00 02/21/2022 15:34:25 [id number] Natasha Hutchins MD [facility] Internal Med [facility] 2043 [facility] [address] [address] 06/01/2022 00:00:00 06/14/2022 21:53:49 [id number] Natasha Hutchins MD [facility] Internal Med [facility] 2043 [facility] [address] [address] 10/19/2022 00:00:00 11/15/2022 21:43:32 [id number] Natasha Hutchins MD [facility] Internal Med [facility] 2043 [facility] [address] [address] 02/15/2023 09:37:05 02/15/2023 10:27:09 Pure hypercholesterolemia 708643716 E78.00 Type 2 carlota betes mellitus without complication 174507321 E11.9 Vitamin D deficiency 347 81627 E55.9 Abdominal pain 76378267 R10.9 Long-term drug therapy 177591609 Z79.899 Neuropathy due to diabetes mellitus 494445753 E11.40 Gastroesop hageal reflux disease 216483485 K21.9 [id number] Natasha Hutchins MD [facility] Internal [place] [address] [address] [address] 06/21/2023 09:35:07 06/21/2023 10:23:36 Gastroesophageal reflux disease 129641956 K21.9 Mononeuritis 61074251 G5 8.9 Pure hypercholesterolemia 759442418 E78.00 Supraventr icular tachycardia 7680799 I47.1 Type 2 carlota betes mellitus without complication 807454387 E11.9 [id number] Natasha Htuchins MD [facility] Internal [place] [address] [address] 10/04/2023 10:36:53 10/04/2023 11:47:39 Administration of influenza vaccine 66113426 Z23 Neuropathy due to diabetes mellitus 828810963 E11.40 Gastroesop hageal reflux disease 055717226 K21.9 Pure hypercholesterolemia 237598615 E78.00 Supraventr icular tachycardia 5107304 I47.10 Type 2 carlota betes mellitus without complication 559590570 E11.9 Mononeuritis 00832723 G5 8.9 Health Concerns Section Related Observation LastModified by Organization Detai ls LastModified Time None Recorded Concern Status LastModified by Organization Details LastModified Time None Recorded Advance Directives Directive N: Payers Insurance Date Sequence Insurance Name Policy Number Policy Shetty Covered Member ID Shetty Member ID Guarantor Name 10/01/2023 1 [place] [employer] [id number] [employer] 10/11/2023 2 [facility] OPT[facility] - PLAN N (MEDICARE SUPPLEMENT) [employer] Link [id number] [employer] Notes Date Note Type Note Provider Name and Address Organization Details Recorded Time 02/15/2023 text/html 1. Hyperlipidemi a trying to follow a low-fat diet2. Diabetes no polyphagia polydipsia hypoglycemia sugars around 1143. Abdominal pain several months right lower quadrant comes and goes squeezing sensation up-to-date on colonoscopy no change in bowel habits pain is getting worse wxgw-rv-xxoicbnp done wake her up at night no weight loss no blood in stool4. GERD no nausea no vomiting5. Neuropathy stable6. History of SVT no palpitation Natasha Hutchins MD [address], [place], [address], [employer] 02/15/2023 10:43:12 06/21/2023 text/html Vague abdominal pain diabetes doing fine hypertension no headache or dizziness dyslipidemia Try to follow low-fat diet urinary incontinence stable on current medicines Natasha Hutchins MD [address], [place], [address], [employer] 07/05/2023 18:24:19 10/04/2023 text/html EGD dilated empirically reflux esophagitis. Colonoscopy incomplete prep did have some polyps they recommended repeat 2 years1. Hyperlipidemia trying to follow a low-fat diet2. Diabetes no polyphagia polydipsia hypoglycemia sugars around 1143. Abdominal pain several months right lower quadrant comes and goes squeezing sensation up-to-date on colonoscopy no change in bowel habits pain is getting worse oqvq-xj-kvzuhkom done wake her up at night no weight loss no blood in stool4. GERD no nausea no vomiting5. Neuropathy stable6. History of SVT no palpitation Natasha Hutchins MD [address] [facility] [address], [place], [address], [employer] 10/09/2023 12:10:05 OBGyn Episode No OBEpisode recorded.
--- OUTSIDE RECORDS SUMMARY | 2025-05-22 07:10 | XMS_ITS | Clinical Summary ---
Author Organization [facility] Address [address] [place] [address] Attn: Epic Prelude ADT ROSELIA MICHEL [address] Care Team Providers Care Die Tripper Name Role Phone Unavailable Primary Care Provider Unavailabl e Social History Tobacco Use Types Packs/Day Years Used Date Smoking Tobacco: Never Assessed Comments Unknown Sex and Gender Information Value Date Recorded Sex Assigned at Not on file Legal Sex Female 4:56 AM HEALTH INFORMATION PROVIDER Gender Identity Not on file Sexual Orientation Not on file Plan of Treatment Health Maintenance Due Date Last Done Comments DTAP/TDAP/TD VACCINES (1 - Tdap) 1973 BREAST CANCER SCREENING 1994 COLORECTAL SCREENING 1999 Colorectal Cancer Screening 1999 FIT-DNA Q 3 years 1999 FIT/FOBT Q 1 year 1999 Flex Sig/CT Colonography Q 5 years 1999 PNEUMOCOCCAL VACCINE 50+ YEARS (1 of 1 - PCV) 06/22/20 04 ZOSTER VACCINE (1 of 2) 2004 OSTEOPOROSIS SCREENING 2019 INFLUENZA VACCINE (#1) 2025 RSV VACCINE (60+ or ) (1 - 1-dose 75+ series) 2029
--- OUTSIDE RECORDS SUMMARY | 2025-05-22 07:10 | XMS_ITS | Referral Summary ---
Author Organization [facility] [address] [place] [address] Care Team Providers Care Laborer Orchard Name Role Phone Magdaleno Hutchins MD Primary Care Provider Allergies Active Allergy Reactions Criticality Noted Date Comments Meperidine Vomiting Low 01/13/2022 Fentanyl Vomiting Low 01/13/2022 Ofloxacin Rash Medium 01/13/2022 Hydrocodone Vomiting Low 01/13/2022 Indomethacin Rash Medium 01/13/2022 Sqzclgfw-Brfxuyijcn-Yjajqolvo Rash Medium 2021 Oxycodone-Acetaminophen Vomiting Low 01/13/2022 Tetracycline Rash Medium 01/13/2022 Tetracyclines Nausea only,Nausea & Vomiting,Vomiting Low 07/19/2017 Medications metFORMIN (GLUCOPHAGE) 500 mg tabletIndicatio ns:type 2 diabetes mellitus Take 1,000 mg by mouth 2 (two) times a day with meals Active glimepiride (AMARYL) 1 mg tabletIndicatio ns:type 2 diabetes mellitus Take 1 mg by mouth nightly Active atorvastatin (LIPITOR) 20 mg tabletIndicatio ns:hyperlipidem ia Take 20 mg by mouth sales program manager before breakfast Active lisinopriL (PRINIVIL,ZESTR IL) 2.5 mg tabletIndicatio ns:hypertension Take 2.5 mg by mouth sales program manager before breakfast Active cyclobenzaprine (FLEXERIL) 10 mg tablet Take 10 mg by mouth 3 (three) times a day as needed for muscle spasms Active fexofenadine (HESHAM) 180 mg tabletIndicatio ns:Seasonal Allergic Rhinitis Take 180 mg by mouth sales program manager before breakfast Active dicyclomine (BENTYL) 20 mg tabletIndicatio ns:Irritable Bowel Syndrome Take 20 mg by mouth as needed Active oxybutynin (DITROPAN) 5 mg tabletIndicatio ns:interstitial cystitis Take 5 mg by mouth 3 (three) times a day as needed Active naloxone (NARCAN) 4 mg/actuation spray,non-aeros ol Narcan 4 mg/actuation nasal spray Active acetaminophen (TYLENOL) 500 mg tablet Take 1 tablet (500 mg total) by mouth every 6 (six) hours as needed for pain 30 tablet Active acetaminophen-c odeine (TYLENOL with CODEINE #3) 300-30 mg per tabletIndicatio ns:Pain Take 1 tablet by mouth 4 (four) times a day as needed for pain. Take 4 tablets daily as needed for pain Indications: pain Active Active Problems Problem Noted Date Diagnosed Date Tibial plateau fracture, right, closed, initial encounter 01/15/2022 Acute pain due to trauma 01/14/2022 Right hamstring muscle strain 01/14/2022 Contusion of right hip 01/14/2022 Other closed fracture of dis tanja end of right radius, initial encounter 01/13/2022 Resolved Problems Problem Noted Date Diagnosed Date Resolved Date Strain of right knee 01/14/2022 022 Social History Tobacco Use Types Packs/Day Years Used Date Smoking Tobacco: Every Day Cigarettes Smokeless Tobacco: Never AUDIT-C Answer Date Recorded Q1: How often do you have a drink containing alc ohol? Monthly or less 01/16/2022 Q2: How many drinks containi ng alcohol do you have on a typical day when you are drinking? 1 or 2 01/16/2022 Q3: How often do you have si x or more drinks on one occasion? 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 Gender Identity Not on file Sexual Orientation Not on file Last Filed Vital Signs Vital Sign Reading Time Taken Comments Blood Pressure 112/62 03/25/2022 3:54 PM CDT Pulse 86 03/25/2022 3:54 PM CDT Temperature 35.6 C (96 F) 03/25/2022 3:54 PM CDT Respiratory Rate 18 03/25/2022 3:54 PM CDT Oxygen Saturation 96% 03/25/2022 3:54 PM CDT Inhaled Oxygen Concentration - - Weight 57.2 kg (126 lb) 02/14/2022 12:12 PM CDT Height 154.9 cm (5' 1) 02/14/2022 12:12 PM CDT Body Mass Index 23.81 02/14/2022 12:12 PM CDT Plan of Treatment Not on file Medical Devices Implanted Type Area Underwear Welter Device Identifier Shelf Expiration Date Model / Serial / Lot [employer] 70-0359 Acu-Loc 2 51mm Radius Right Distal Volar Narrow Plate Bone - S0 - [id number] Implanted:Qty: 1 on 01/19/2022 by Adriana Jung MD PhD at [facility] Plate Right: Radius [employer] 70-0359 / 0 / [employer] [id number] 3.5mm 12mm Hexalobe Screw Bone Titanium Nonsterile Small Fragment - [id number] Implanted:Qty: 1 on 01/19/2022 by Adriana Jung MD PhD at [facility] Screw Right: Radius [employer] [id number] / / [employer] Co-T2320 2.3mm 20mm Lock Hexagonal Cortical Full Thread Screw Bone - [id number] Implanted:Qty: 2 on 01/19/2022 by Adriana Jung MD PhD at [facility] Screw Right: Radius [employer] CO-T2320 / / [employer] Co-T2322 2.3mm 22mm Lock Hexagonal Cortical Full Thread Screw Bone - [id number] Implanted:Qty: 1 on 01/19/2022 by Adriana Jung MD PhD at [facility] Screw Right: Radius [employer] CO-T2322 / / [employer] Co-T2316 2.3mm 16mm Lock Hexagonal Cortical Full Thread Screw Bone - [id number] Implanted:Qty: 2 on 01/19/2022 by Adriana Jung MD PhD at [facility] Screw Right: Radius [employer] CO-T2316 / / [employer] Co-S2320 Acu-Loc 2.3mm 20mm Smooth Lock Cortical Peg Fixation Titanium - [id number] Implanted:Qty: 1 on 01/19/2022 by Adriana Jung MD PhD at [facility] Screw Right: Radius [employer] CO-S2320 / / [employer] [id number] 3.5mm 10mm Lock Hexalobe Head Screw Bone Nonsterile - [id number] Implanted:Qty: 1 on 01/19/2022 by Adriana Jung MD PhD at [facility] Screw Right: Radius [employer] [id number] / / [employer] [id number] 3.5mm 12mm Lock Hexalobe Head Screw Bone Nonsterile - [id number] Implanted:Qty: 1 on 01/19/2022 by Adriana Jung MD PhD at [facility] Screw Right: Radius [employer] [id number] / / Insurance MEDICARE [facility] MEDICARE [facility] MEDICARE [facility] MEDICARE [facility] Address: [facility] [id number] [place] [address] [facility] Advance Directives For more information, please contact: [phone] * Full Code (Latest Code Status on File) Date Activated Date Inactivated Comments 01/13/2022 4:18 PM 01/15/2022 8:43 PM Care Teams Laborer Orchard Relationship Specialty Start Date End Date Magdaleno Hutchins MD PCP - General 06/07/17
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
== END 2025-05-22 07:06 | disposition home or self-care (01) ==
PROVIDERS: PCP Internal Medicine; Visit Provider Internal Medicine
DX: Z12.31 Encounter for screening mammogram for malignant neoplasm of breast (principal)
CPT/HCPCS: 77063; 77067

== ENCOUNTER 2025-05-29 08:28 | Outpatient (CLI) | payer MEDICARE, SELFPAY ==
--- NOTE | ~2025-05-29 | DEXA_ITS ---
Bone Density Report Name: BRIANA LINK Age: 69 Sex: Female Ethnicity: White Date of : 1955 Indication: postmenopausal; screening for osteoporosis; inflammatory bowel disease; hysterectomy; Referring Provider: Magdaleno Castillo Study: Bone densitometry was performed. Exam Date: May 29, 2025 Accession number: [id number] Bone Density: Region BMD T-score Z-score Classification AP Spine(L1-L4) 0.738 -2.8 -0.6 Osteoporosis Femoral Neck (Left) 0.453 -3.6 -1.7 Osteoporosis Total Hip (Left) 0.665 -2.3 -0.7 Osteopenia Femoral Neck (Right) 0.502 -3.1 -1.3 Osteoporosis Total Hip (Right) 0.641 -2.5 -0.9 Osteoporosis Total Hip Mean 0.653 -2.4 -0.8 Osteopenia World Health Organization criteria for BMD impression classify patients as: Normal (T-score at or above -1.0), Osteopenia (T-score between -1.0 and -2.5), or Osteoporosis (T-score at or below -2.5). 10-year Fracture Risk: FRAX not reported because: Some T-score for Spine Total or Hip Total or Femoral Neck at or below -2.5 Clinical Information Provided by Patient: Smokes Has used the following medications: Vitamin D Has the following medical conditions: Inflammatory bowel diseases, Hysterectomy Patient maximum height was 61 Menopause Age: 29 No regular weight bearing exercise Drinks caffeinated beverages Onset of menses at age 10 Number of children 2 Impression: The patient has osteoporosis, based on the Left Femoral Neck T-score. The patient has risk factors, including: smoking. Discussion: INCREASED RISK OF FRACTURE. BONE DENSITY IS UNDESIRABLY LOW AT ONE OR MORE SKELETAL SITES, CONSISTENT WITH POSTMENOPAUSAL OSTEOPOROSIS. This patient's lowest T-score meets the World Health Organization's (WHO) criteria for osteoporosis at one or more sites (T-score -2.5 or below). In untreated patients, the risk of osteoporotic fracture increases approximately two-fold for each 1.0 SD decrease in T-score. Low bone density is not the only risk factor for fracture; also consider factors such as patient's age, frailty or poor health, risk of falling, risk of injury, previous osteoporotic fracture, family history of osteoporosis, cigarette smoking, low body weight, etc. Not everyone with low bone mineral density has osteoporosis; osteomalacia and other metabolic bone disorders should also be considered. Patients who have osteoporosis should be evaluated for specific diseases and conditions (secondary causes) that may cause or contribute to bone loss. The [place] [employer] (AACE) and National Osteoporosis Foundation (NOF) recommend pharmacologic intervention for all postmenopausal women whose T-score is in this range. The patient should follow a healthful lifestyle (good nutrition with adequate calcium and vitamin D, and appropriate weight-bearing exercise). Follow-Up: Consider a repeat BMD and Vertebral Fracture Assessment (VFA) exam in 2 years or sooner if medically necessary, to reassess this patient's status. Reported by: FRANCISCA on 05/29/2025 8:45:00 AM. Reviewed, dictated and finalized at location A.
== END 2025-05-29 08:29 | disposition home or self-care (01) ==
LOC: MICIMG 08:29
PROVIDERS: PCP Internal Medicine; Visit Provider Internal Medicine
DX: M18.0 Bilateral primary osteoarthritis of first carpometacarpal joints (principal); Z78.0 Asymptomatic menopausal state
CPT/HCPCS: 77080